=== PATIENT | female | born 1980 | race Caucasian/White ===

== ENCOUNTER 2017-05-18 10:34 | Day surgery (SDC) | payer BC ==
[~2017-05-18] VITALS: Ht 165.1 cm; Wt 77.1 kg
[~2017-05-18 10:34] MED LIST: CLON1TAB PO; FLUO10CA9 PO; FLUO40CA PO; GLYCOPYRROLATE INJ 0.2 MG/ML 2 ML VIAL As Ordered ONE; LIDOCAINE 2% INJ 100 MG/5 ML SDV (FOR ANES.) As Ordered ONE; MIDAZOLAM INJ 2 MG/2 ML VIAL (J2250) As Ordered ONE; NEOSTIGMINE 1MG/ML 5 ML SYRINGE (J2710) As Ordered ONE; ONDANSETRON 4MG/2ML VIAL (J2405) As Ordered ONE; PRENTAB20 PO; PROPOFOL 200 MG/20 ML VIAL As Ordered ONE; PROZ40CA PO; QUET1TAB8 PO; ROCURONIUM BROMIDE 50 MG/5 ML VIAL/SYRINGE As Ordered ONE; SERO50TA PO; TRAZ50TA11 PO; VENL150C43 PO; VITA100066 PO; ZANTTAB PO; ZOLO25TA PO; fentaNYL 100 MCG/2 ML INJECTION (J3010) As Ordered ONE
[2017-05-18] MEDS ORDERED: LR 1,000 ML IV ONE (11:00)
[2017-05-18 11:33] LABS: CONTROL LINE UCG INT CTR LINE PRESENT
[2017-05-18] MEDS ORDERED: SUCCINYLCHOLINE 100 MG/5 ML SYRINGE (J0330) As Ordered ONE (11:56)
[2017-05-18] MEDS ORDERED: dexameTHASONE 4 MG/ML 1ML VIAL (J1100) As Ordered ONE (12:12)
[2017-05-18] MEDS ORDERED: LIDOCAINE 2% JELLY 30 ML As Ordered ONE (12:15)
[2017-05-18] MEDS ORDERED: HYDROmorphone HCL 2 MG/ML 1ML VIAL (J1170) As Ordered ONE (12:33)
[2017-05-18] MEDS ORDERED: fentaNYL 100 MCG/2 ML INJECTION (J3010) As Ordered ONE (13:04)
[2017-05-18] MEDS: fentaNYL 100 MCG/2 ML INJECTION (J3010) IV PRN ×4 (13:05→13:35)
[2017-05-18] MEDS ORDERED: KETOROLAC 30 MG/ML VIAL (J1885) As Ordered ONE (13:16)
[2017-05-18] MEDS ORDERED: NORCO, ANEXSIA 5/325MG TABLET (HYDROcodone/ACETAMINOPHEN) PO PRN ×2 (13:30→13:45)
[2017-05-18] MEDS ORDERED: LR 1,000 ML IV SCH ×2 (13:30)
[2017-05-18] MEDS ORDERED: KETOROLAC 30 MG/ML VIAL (J1885) IV PRN (13:30)
[2017-05-18] MEDS ORDERED: ONDANSETRON 4MG/2ML VIAL (J2405) IV PRN (13:30)
[2017-05-18] MEDS ORDERED: IBUPROFEN 600 MG TAB PO PRN (13:45)
[2017-05-18 15:20] VITALS: BP 104/55
--- NOTE | 2017-05-18 16:52 | RO ---
DATE OF PROCEDURE: 05/18/2017 PREOPERATIVE DIAGNOSIS: Desire for cessation of intrauterine device (IUD) and desire for permanent sterilization. POSTOPERATIVE DIAGNOSIS: Desire for cessation of intrauterine device (IUD) and desire for permanent sterilization. Ventral hernia noted. PROCEDURE: Laparoscopic bilateral tubal ligation and removal of Mirena IUD. SURGEON: Dr. Viki Medina PARKING ASSISTANT: None. ANESTHESIA: General endotracheal anesthesia. DESCRIPTION OF PROCEDURE: Yuliana was brought to the operating room where sufficient general endotracheal anesthesia was induced. She was prepped, draped and positioned in the usual sterile fashion. The uterus was sounded to 8, the uterine manipulator placed and attention turned to the abdomen where a transverse semilunar incision was made at the inferior aspect of the umbilicus, and sharp and blunt dissection were continued to the level of the rectus fascia, which was elevated with Elle clamps, transversely incised, secured with #0 Vicryl retention suture, and then the peritoneum entered under direct visualization and the Humberto cannula placed. CO2 was then begun to fill the peritoneal cavity. After adequate CO2 insufflation, the peritoneal cavity was visualized. There were normal, shiny peritoneal surfaces throughout. There were no excrescences, ascites, nor exudates, but there was a ventral hernia. This was visible inferior to the umbilicus immediately upon entering. It was below even the extension of the trocar, and, of course, we had done direct visualization, so we did not use sharp trocars, so there was no evidence of injury to the area of omentum that was adherent to this defect. And as we evaluated it, it was several centimeters across, sort of mid ventral, the upper third of the lower half of the abdomen but not umbilical per se. Obviously, I do not know what caused this hernia. She may simply have had a ventral hernia, but she has had pregnancies and diastasis can certainly contribute to this. She has had a previous section and a previous laparoscopy. I would lean towards the section, but of, course, I do not know what caused this, nor did there seem to be any danger of incarceration of bowel or other such and so since we had not planned a repair and since it is not clear to me that this would not be better done with a plan and a plan for mesh, based on the appearance of the defect, we left it alone and went ahead and moved on to the tubal ligation. The uterus, ovaries and tubes were normal in appearance. The appendix was normal in appearance. The upper abdomen was normal in appearance. We then used bipolar cautery to cauterize the tubes, starting on the left. We used four separate locations on each tube with no difficulty in this aspect of the case, and we were able to maintain careful distance from the bowel and other peritoneal contents while doing so. Since we had already removed the Mirena IUD before the placement of the uterine manipulator and then moved on to the laparoscopy, we then discontinued the case, letting the CO2 escape the abdomen, removing instruments, closing the fascial wound with the #0 Vicryl retention sutures that had already been placed and closing the skin with a #3-0 subcuticular stitch. The procedure was then ended. Estimated blood loss for the procedure was about 5 mL. Fluid replacement was crystalloid. Complications: None. Condition and Disposition: Yuliana tolerated the procedure well and was recovering in the recovery room in good condition.
== END 2017-05-18 16:00 | disposition home or self-care (01) ==
LOC: M SDC 10:34
PROVIDERS: ATTEND Obstetrics & Gynecology
DX: Z30.2 Encounter for sterilization (principal); Z30.432 Encounter for removal of intrauterine contraceptive device; K21.9 Gastro-esophageal reflux disease without esophagitis; F41.9 Anxiety disorder, unspecified; F32.9 Major depressive disorder, single episode, unspecified; F17.210 Nicotine dependence, cigarettes, uncomplicated; Z79.899 Other long term (current) drug therapy; Z88.8 Allergy status to other drugs, medicaments and biological substances
CPT/HCPCS: 58301; 58670; 84703; J0330; J1100; J1170; J1885; J2250; J2405; J2710; J3010

== ENCOUNTER 2018-05-15 20:55 | Emergency (ER) | payer OTHER, BC ==
[2018-05-15 22:19] LABS: BASO # 0.1 10^3/uL (0.0-0.2); BASO % 0.5 % (0.0-1.0); EOS # 0.2 10^3/uL (0.0-0.50); EOS % 1.5 % (0.0-3.0); HEMATOCRIT 38.4 % (36.0-47.0); HEMOGLOBIN 12.8 g/dl (12.0-15.5); IMMATURE GRANULOCYTE % 0.4 % (0-3.0); LYMPH # 3.4 10^3/uL (1.5-4.5); LYMPH % 24.7 % (24.0-44.0); MEAN CORPUSCULAR HEMOGLOBIN 30.5 pg (27.0-33.0); MEAN CORPUSCULAR HGB CONC 33.3 g/dl (32.0-36.5); MEAN CORPUSCULAR VOLUME 91.4 fl (80.0-96.0); MONO # 1.3 10^3/uL (0.0-0.8); MONO % 9.6 % (0.0-5.0); NEUTROPHILS # 8.6 10^3/uL (1.8-7.7); NEUTROPHILS % 63.3 % (36.0-66.0); PLATELET COUNT, AUTOMATED 368 10^3/uL (150-450); RED CELL DISTRIBUTION WIDTH 13.3 % (11.5-14.5); WHITE BLOOD COUNT 13.6 10^3/uL (4.0-10.0)
[2018-05-15 22:42] LABS: AMPHETAMINES LEVEL URINE NEGATIVE (NEGATIVE); BARBITURATES URINE NEGATIVE (NEGATIVE); BENZODIAZEPINES URINE NEGATIVE (NEGATIVE); CANNABINOIDS URINE NEGATIVE (NEGATIVE); COCAINE METABOLITE URINE NEGATIVE (NEGATIVE); METHADONE URINE NEGATIVE (NEGATIVE); OPIATES URINE NEGATIVE (NEGATIVE); PHENCYCLIDINE URINE NEGATIVE (NEGATIVE)
[2018-05-15 22:46] LABS: ALBUMIN 3.7 GM/DL (3.2-5.2); ALBUMIN/GLOBULIN RATIO 1.09 (1.00-1.93); ALKALINE PHOSPHATASE 54 U/L (45-117); ALT/SGPT 16 U/L (12-78); ANION GAP 12 MEQ/L (8-16); AST/SGOT 10 U/L (7-37); BILIRUBIN,DIRECT < 0.1 MG/DL (0.0-0.2); BILIRUBIN,TOTAL 0.2 MG/DL (0.2-1.0); BLOOD UREA NITROGEN 6 MG/DL (7-18); CALCIUM LEVEL 8.7 MG/DL (8.5-10.1); CARBON DIOXIDE LEVEL 20 MEQ/L (21-32); CHLORIDE LEVEL 109 MEQ/L (98-107); CPK CREATINE PHOSPHOKINASE 66 U/L (26-192); CREATININE FOR GFR 0.63 MG/DL (0.55-1.30); GLOMERULAR FILTRATION RATE > 60.0 (>60); GLUCOSE, FASTING 89 MG/DL (70-100); POTASSIUM SERUM 3.1 MEQ/L (3.5-5.1); SALICYLATE LEVEL 4.5 MG/DL (5.0-30.0); SODIUM LEVEL 141 MEQ/L (136-145); TOTAL PROTEIN 7.1 GM/DL (6.4-8.2); TROPONIN I < 0.02 NG/ML (< 0.10)
[2018-05-15 22:50] LABS: ETHYL ALCOHOL (ETHANOL) < 0.003 % (0.000-0.010)
[2018-05-15 22:51] LABS: ACETAMINOPHEN LEVEL < 2.0 UG/ML (10.0-30.0); CK-MB VALUE MASS < 1.0 NG/ML (<3.6); MB/CK RELATIVE INDEX 1.51 (< OR =4)
[2018-05-15] MEDS: POTASSIUM CHLORIDE 10 MEQ SR TABLET PO (23:53)
== END 2018-05-16 00:05 | disposition home or self-care (01) ==
LOC: M ED 05-16 00:05
DX: E87.6 Hypokalemia (principal); G62.9 Polyneuropathy, unspecified; N80.9 Endometriosis, unspecified; G43.909 Migraine, unspecified, not intractable, without status migrainosus; Z79.899 Other long term (current) drug therapy; Z88.1 Allergy status to other antibiotic agents; Z88.8 Allergy status to other drugs, medicaments and biological substances; F17.210 Nicotine dependence, cigarettes, uncomplicated
CPT/HCPCS: 70450

== ENCOUNTER 2018-06-26 06:43 | Inpatient (IN) | payer OTHER ==
[2018-06-26 08:09] LABS: HEMATOCRIT 41.8 % (36.0-47.0); MEAN CORPUSCULAR HEMOGLOBIN 30.4 pg (27.0-33.0); MEAN CORPUSCULAR HGB CONC 33.5 g/dl (32.0-36.5); MEAN CORPUSCULAR VOLUME 90.9 fl (80.0-96.0); PLATELET COUNT, AUTOMATED 398 10^3/uL (150-450); RED CELL DISTRIBUTION WIDTH 12.9 % (11.5-14.5); WHITE BLOOD COUNT 8.7 10^3/uL (4.0-10.0)
[2018-06-26 08:24] LABS: CONTROL LINE HCG INT CTR LINE PRESENT; HCG, SERUM QUALITATIVE NEGATIVE (NEGATIVE)
[2018-06-26 08:54] LABS: ALBUMIN 3.9 GM/DL (3.2-5.2); ALBUMIN/GLOBULIN RATIO 1.22 (1.00-1.93); ALKALINE PHOSPHATASE 56 U/L (45-117); ALT/SGPT 24 U/L (12-78); ANION GAP 10 MEQ/L (8-16); AST/SGOT 33 U/L (7-37); BILIRUBIN,DIRECT < 0.1 MG/DL (0.0-0.2); BILIRUBIN,TOTAL 0.2 MG/DL (0.2-1.0); BLOOD UREA NITROGEN 7 MG/DL (7-18); CALCIUM LEVEL 8.8 MG/DL (8.5-10.1); CARBON DIOXIDE LEVEL 27 MEQ/L (21-32); CHLORIDE LEVEL 105 MEQ/L (98-107); CREATININE FOR GFR 0.68 MG/DL (0.55-1.30); ETHYL ALCOHOL (ETHANOL) 0.009 % (0.000-0.010); GLOMERULAR FILTRATION RATE > 60.0 (>60); GLUCOSE, FASTING 77 MG/DL (70-100); POTASSIUM SERUM 3.7 MEQ/L (3.5-5.1); SALICYLATE LEVEL 4.9 MG/DL (5.0-30.0); SODIUM LEVEL 142 MEQ/L (136-145); TOTAL PROTEIN 7.1 GM/DL (6.4-8.2)
[2018-06-26 08:56] LABS: ACETAMINOPHEN LEVEL < 2.0 UG/ML (10.0-30.0)
[2018-06-26 09:24] LABS: AMPHETAMINES LEVEL URINE NEGATIVE (NEGATIVE); BARBITURATES URINE NEGATIVE (NEGATIVE); BENZODIAZEPINES URINE NEGATIVE (NEGATIVE); CANNABINOIDS URINE NEGATIVE (NEGATIVE); COCAINE METABOLITE URINE NEGATIVE (NEGATIVE); METHADONE URINE NEGATIVE (NEGATIVE); OPIATES URINE NEGATIVE (NEGATIVE); PHENCYCLIDINE URINE NEGATIVE (NEGATIVE)
[2018-06-26] MEDS ORDERED: MAALOX 30 ML SUSP *UDC PO (12:30)
[2018-06-26] MEDS ORDERED: MOM 30ML SUSPENSION UDC PO (12:30)
[2018-06-26] MEDS: hydrOXYzine 25 MG TAB PO (20:37)
[2018-06-26] MEDS: TOPIRAMATE (TopAMAX) 100 MG TAB PO (20:37)
[2018-06-26] MEDS: TOPIRAMATE (TopAMAX) 25 MG TAB PO (20:37)
[2018-06-27] MEDS: FLUoxetine 20 MG CAP PO (08:47)
[2018-06-27] MEDS: TOPIRAMATE (TopAMAX) 100 MG TAB PO ×2 (08:47→20:53)
[2018-06-27] MEDS: TOPIRAMATE (TopAMAX) 25 MG TAB PO ×2 (08:47→20:53)
[2018-06-27] MEDS: INFLUENZA QUADRIVALENT PF VACCINE 0.5ML SYRINGE (90686) IM (08:47)
[2018-06-27] MEDS: OMEPRAZOLE 20 MG CAP PO (08:47)
[2018-06-27] MEDS: NICOTINE 21MG/24HR 1 EA TRANSDERMAL TD (09:42)
[2018-06-27] MEDS ORDERED: PILL CRUSHER/CUTTER 1 EACH XX (13:15)
[2018-06-27] MEDS: hydrOXYzine 25 MG TAB PO (20:53)
[2018-06-27] MEDS: traZODone 50 MG TAB PO (23:14)
[2018-06-28] MEDS: TOPIRAMATE (TopAMAX) 25 MG TAB PO ×2 (08:21→20:48)
[2018-06-28] MEDS: OMEPRAZOLE 20 MG CAP PO (08:21)
[2018-06-28] MEDS: TOPIRAMATE (TopAMAX) 100 MG TAB PO ×2 (08:21→20:47)
[2018-06-28] MEDS: FLUoxetine 20 MG CAP PO (08:21)
[2018-06-28] MEDS: hydrOXYzine 25 MG TAB PO ×2 (08:22→20:47)
[2018-06-28] MEDS: NICOTINE 21MG/24HR 1 EA TRANSDERMAL TD (08:22)
[2018-06-28] MEDS: ACETAMINOPHEN TAB 650MG DOSE (2X325MG) PO (18:02)
[2018-06-29] MEDS: NICOTINE 21MG/24HR 1 EA TRANSDERMAL TD (08:52)
[2018-06-29] MEDS: OMEPRAZOLE 20 MG CAP PO (08:53)
[2018-06-29] MEDS: FLUoxetine 20 MG CAP PO (08:53)
[2018-06-29] MEDS: TOPIRAMATE (TopAMAX) 25 MG TAB PO ×2 (08:53→21:54)
[2018-06-29] MEDS: TOPIRAMATE (TopAMAX) 100 MG TAB PO ×2 (08:53→21:54)
[2018-06-29] MEDS: ACETAMINOPHEN TAB 650MG DOSE (2X325MG) PO ×2 (13:06→23:41)
[2018-06-29] MEDS: hydrOXYzine 25 MG TAB PO ×2 (18:14→23:41)
[2018-06-30] MEDS: NICOTINE 21MG/24HR 1 EA TRANSDERMAL TD (08:32)
[2018-06-30] MEDS: OMEPRAZOLE 20 MG CAP PO (08:33)
[2018-06-30] MEDS: TOPIRAMATE (TopAMAX) 100 MG TAB PO ×2 (08:33→21:07)
[2018-06-30] MEDS: TOPIRAMATE (TopAMAX) 25 MG TAB PO ×2 (08:33→21:07)
[2018-06-30] MEDS: FLUoxetine 20 MG CAP PO (08:33)
[2018-06-30] MEDS: hydrOXYzine 25 MG TAB PO ×2 (11:52→23:33)
[2018-06-30] MEDS: ACETAMINOPHEN TAB 650MG DOSE (2X325MG) PO (21:07)
[2018-07-01] MEDS: TOPIRAMATE (TopAMAX) 25 MG TAB PO ×2 (09:16→20:59)
[2018-07-01] MEDS: FLUoxetine 20 MG CAP PO (09:16)
[2018-07-01] MEDS: NICOTINE 21MG/24HR 1 EA TRANSDERMAL TD (09:16)
[2018-07-01] MEDS: OMEPRAZOLE 20 MG CAP PO (09:16)
[2018-07-01] MEDS: TOPIRAMATE (TopAMAX) 100 MG TAB PO ×2 (09:17→20:59)
[2018-07-01] MEDS ORDERED: ONDANSETRON 4 MG TAB (S0181) PO (11:00)
[2018-07-01] MEDS: hydrOXYzine 25 MG TAB PO (11:49)
[2018-07-01] MEDS: ACETAMINOPHEN TAB 650MG DOSE (2X325MG) PO (15:34)
[2018-07-01] MEDS: hydrOXYzine 50 MG TAB PO (18:30)
[2018-07-02] MEDS: TOPIRAMATE (TopAMAX) 25 MG TAB PO ×2 (08:08→21:12)
[2018-07-02] MEDS: NICOTINE 21MG/24HR 1 EA TRANSDERMAL TD (08:08)
[2018-07-02] MEDS: OMEPRAZOLE 20 MG CAP PO (08:08)
[2018-07-02] MEDS: FLUoxetine 20 MG CAP PO (08:08)
[2018-07-02] MEDS: TOPIRAMATE (TopAMAX) 100 MG TAB PO ×2 (08:08→21:12)
[2018-07-02] MEDS: hydrOXYzine 25 MG TAB PO (21:55)
[2018-07-03] MEDS: NICOTINE 21MG/24HR 1 EA TRANSDERMAL TD (08:57)
[2018-07-03] MEDS: TOPIRAMATE (TopAMAX) 100 MG TAB PO (08:59)
[2018-07-03] MEDS: TOPIRAMATE (TopAMAX) 25 MG TAB PO (08:59)
[2018-07-03] MEDS: OMEPRAZOLE 20 MG CAP PO (08:59)
[2018-07-03] MEDS: FLUoxetine 20 MG CAP PO (08:59)
== END 2018-07-03 09:45 | disposition home or self-care (01) | DRG 751 ==
LOC: M ED 06:43 → M ED INP 12:23 → M PSY 15:33
DX: F33.1 Major depressive disorder, recurrent, moderate (principal); F29 Unspecified psychosis not due to a substance or known physiological condition; Z88.1 Allergy status to other antibiotic agents; Z88.6 Allergy status to analgesic agent; Z79.899 Other long term (current) drug therapy; K21.9 Gastro-esophageal reflux disease without esophagitis; J30.9 Allergic rhinitis, unspecified; Z98.51 Tubal ligation status; F17.210 Nicotine dependence, cigarettes, uncomplicated

== ENCOUNTER → 2018-07-20 | Outpatient (REF) | payer OTHER ==
[2018-07-20 14:08] LABS: BASO # 0.1 10^3/uL (0.0-0.2); BASO % 0.5 % (0.0-1.0); EOS # 0.2 10^3/uL (0.0-0.50); EOS % 1.6 % (0.0-3.0); HEMATOCRIT 42.1 % (36.0-47.0); IMMATURE GRANULOCYTE % 0.2 % (0-3.0); LYMPH # 1.6 10^3/uL (1.5-4.5); LYMPH % 16.7 % (24.0-44.0); MEAN CORPUSCULAR HEMOGLOBIN 30.4 pg (27.0-33.0); MEAN CORPUSCULAR HGB CONC 33.3 g/dl (32.0-36.5); MEAN CORPUSCULAR VOLUME 91.3 fl (80.0-96.0); MONO % 11.1 % (0.0-5.0); NEUTROPHILS # 6.5 10^3/uL (1.8-7.7); NEUTROPHILS % 69.9 % (36.0-66.0); PLATELET COUNT, AUTOMATED 393 10^3/uL (150-450); RED BLOOD COUNT 4.61 10^6/uL (4.00-5.40); RED CELL DISTRIBUTION WIDTH 13.9 % (11.5-14.5); WHITE BLOOD COUNT 9.3 10^3/uL (4.0-10.0)
[2018-07-20 14:37] LABS: ALBUMIN 3.8 GM/DL (3.2-5.2); ALBUMIN/GLOBULIN RATIO 1.19 (1.00-1.93); ALKALINE PHOSPHATASE 55 U/L (45-117); ALT/SGPT 21 U/L (12-78); ANION GAP 8 MEQ/L (8-16); AST/SGOT 13 U/L (7-37); BILIRUBIN,TOTAL 0.3 MG/DL (0.2-1.0); BLOOD UREA NITROGEN 8 MG/DL (7-18); CALCIUM LEVEL 8.9 MG/DL (8.5-10.1); CARBON DIOXIDE LEVEL 23 MEQ/L (21-32); CHLORIDE LEVEL 109 MEQ/L (98-107); CHOLESTEROL LEVEL 147 MG/DL (<200); CHOLESTEROL RISK RATIO 1.934 (<5); CREATININE FOR GFR 0.77 MG/DL (0.55-1.30); GLOMERULAR FILTRATION RATE > 60.0 (>60); GLUCOSE, FASTING 78 MG/DL (70-100); HDL CHOLESTEROL 76 MG/DL (>40); LDL CHOLESTEROL 61 MG/DL (<100); NON-HDL-C 71 MG/DL; POTASSIUM SERUM 4.2 MEQ/L (3.5-5.1); SODIUM LEVEL 140 MEQ/L (136-145); TOTAL 25(OH) VITAMIN D 35.5 NG/ML (30.0-100.0); TRIGLYCERIDES LEVEL 52 MG/DL (<150)
== END ==
LOC: M SFHCSACK 09:20
DX: J30.2 Other seasonal allergic rhinitis (principal); Z13.220 Encounter for screening for lipoid disorders; Z13.29 Encounter for screening for other suspected endocrine disorder; Z13.21 Encounter for screening for nutritional disorder
CPT/HCPCS: 84443

== ENCOUNTER 2018-07-24 08:49 | Inpatient (IN) | payer OTHER ==
[2018-07-24 09:41] LABS: HEMATOCRIT 45.5 % (36.0-47.0); HEMOGLOBIN 14.9 g/dl (12.0-15.5); MEAN CORPUSCULAR HEMOGLOBIN 30.6 pg (27.0-33.0); MEAN CORPUSCULAR HGB CONC 32.7 g/dl (32.0-36.5); MEAN CORPUSCULAR VOLUME 93.4 fl (80.0-96.0); PLATELET COUNT, AUTOMATED 403 10^3/uL (150-450); RED BLOOD COUNT 4.87 10^6/uL (4.00-5.40); WHITE BLOOD COUNT 11.2 10^3/uL (4.0-10.0)
[2018-07-24 09:48] LABS: CONTROL LINE HCG INT CTR LINE PRESENT; HCG, SERUM QUALITATIVE NEGATIVE (NEGATIVE)
[2018-07-24 09:54] LABS: AMPHETAMINES LEVEL URINE NEGATIVE (NEGATIVE); BARBITURATES URINE NEGATIVE (NEGATIVE); BENZODIAZEPINES URINE NEGATIVE (NEGATIVE); CANNABINOIDS URINE POSITIVE (NEGATIVE); COCAINE METABOLITE URINE NEGATIVE (NEGATIVE); METHADONE URINE NEGATIVE (NEGATIVE); OPIATES URINE NEGATIVE (NEGATIVE); PHENCYCLIDINE URINE NEGATIVE (NEGATIVE)
[2018-07-24 10:05] LABS: ACETAMINOPHEN LEVEL < 2.0 UG/ML (10.0-30.0); ALBUMIN/GLOBULIN RATIO 1.25 (1.00-1.93); ALKALINE PHOSPHATASE 61 U/L (45-117); ALT/SGPT 17 U/L (12-78); ANION GAP 8 MEQ/L (8-16); AST/SGOT 13 U/L (7-37); BILIRUBIN,DIRECT 0.1 MG/DL (0.0-0.2); BILIRUBIN,TOTAL 0.4 MG/DL (0.2-1.0); BLOOD UREA NITROGEN 7 MG/DL (7-18); CALCIUM LEVEL 9.3 MG/DL (8.5-10.1); CARBON DIOXIDE LEVEL 24 MEQ/L (21-32); CHLORIDE LEVEL 108 MEQ/L (98-107); CREATININE FOR GFR 0.76 MG/DL (0.55-1.30); ETHYL ALCOHOL (ETHANOL) < 0.003 % (0.000-0.010); GLOMERULAR FILTRATION RATE > 60.0 (>60); GLUCOSE, FASTING 100 MG/DL (70-100); SALICYLATE LEVEL 4.4 MG/DL (5.0-30.0); SODIUM LEVEL 140 MEQ/L (136-145); TOTAL PROTEIN 7.2 GM/DL (6.4-8.2)
[2018-07-24] MEDS ORDERED: MAALOX 30 ML SUSP *UDC PO (15:00)
[2018-07-24] MEDS ORDERED: hydrOXYzine 50 MG TAB PO (15:00)
[2018-07-24] MEDS: NICOTINE 21MG/24HR 1 EA TRANSDERMAL TD (18:19)
[2018-07-24] MEDS: hydrOXYzine 10 MG TAB PO (19:45)
[2018-07-24] MEDS: TOPIRAMATE (TopAMAX) 100 MG TAB PO (20:29)
[2018-07-24] MEDS: TOPIRAMATE (TopAMAX) 25 MG TAB PO (20:30)
[2018-07-25] MEDS: hydrOXYzine 10 MG TAB PO ×3 (01:43→17:37)
[2018-07-25] MEDS: TOPIRAMATE (TopAMAX) 25 MG TAB PO ×2 (09:51→20:40)
[2018-07-25] MEDS: TOPIRAMATE (TopAMAX) 100 MG TAB PO ×2 (09:51→20:40)
[2018-07-25] MEDS: OMEPRAZOLE 20 MG CAP PO (09:51)
[2018-07-25] MEDS: FLUoxetine 20 MG CAP PO (09:51)
[2018-07-25] MEDS: NICOTINE 21MG/24HR 1 EA TRANSDERMAL TD (09:52)
[2018-07-25] MEDS ORDERED: CETIRIZINE (ZyrTEC) 10 MG TAB PO (10:15)
[2018-07-25 10:39] LABS: KETONE, URINE AUTO RFX NEGATIVE (NEGATIVE); LEUKOCYTE ESTERASE UR AUTO RFX NEGATIVE (NEGATIVE); MUCUS, URINE RFX SMALL (NEGATIVE); NITRITE, URINE AUTO RFX NEGATIVE (NEGATIVE); RBC, URINE AUTO RFX 2 /HPF (0-3); SPECIFIC GRAVITY UR AUTO RFX 1.002 (1.002-1.035); SQUAM EPITHELIAL CELL UR AURFX 5 /HPF (0-6); WBC, URINE AUTO RFX 1 /HPF (0-3)
[2018-07-25] MEDS: traZODone 50 MG TAB PO (22:46)
[2018-07-26 08:18] LABS: HEMATOCRIT 41.8 % (36.0-47.0); HEMOGLOBIN 13.5 g/dl (12.0-15.5); MEAN CORPUSCULAR HEMOGLOBIN 30.5 pg (27.0-33.0); MEAN CORPUSCULAR HGB CONC 32.3 g/dl (32.0-36.5); MEAN CORPUSCULAR VOLUME 94.4 fl (80.0-96.0); PLATELET COUNT, AUTOMATED 356 10^3/uL (150-450); RED BLOOD COUNT 4.43 10^6/uL (4.00-5.40); RED CELL DISTRIBUTION WIDTH 13.9 % (11.5-14.5); WHITE BLOOD COUNT 9.8 10^3/uL (4.0-10.0)
[2018-07-26] MEDS: NICOTINE 21MG/24HR 1 EA TRANSDERMAL TD (08:20)
[2018-07-26] MEDS: TOPIRAMATE (TopAMAX) 100 MG TAB PO ×2 (08:21→20:40)
[2018-07-26] MEDS: OMEPRAZOLE 20 MG CAP PO (08:21)
[2018-07-26] MEDS: FLUoxetine 20 MG CAP PO (08:21)
[2018-07-26] MEDS: TOPIRAMATE (TopAMAX) 25 MG TAB PO ×2 (08:21→20:40)
[2018-07-26] MEDS: CEFDINIR 300 MG CAP (OMNICEF) PO ×2 (12:45→20:40)
[2018-07-26] MEDS: MOM 30ML SUSPENSION UDC PO (15:48)
[2018-07-26] MEDS: CETIRIZINE (ZyrTEC) 10 MG TAB PO (20:40)
[2018-07-26] MEDS: traZODone 50 MG TAB PO (22:11)
[2018-07-26] MEDS: PRAZOSIN 1 MG CAP PO (22:12)
[2018-07-27] MEDS: ACETAMINOPHEN TAB 650MG DOSE (2X325MG) PO (07:14)
[2018-07-27] MEDS: FLUoxetine 20 MG CAP PO (08:25)
[2018-07-27] MEDS: CEFDINIR 300 MG CAP (OMNICEF) PO (08:25)
[2018-07-27] MEDS: TOPIRAMATE (TopAMAX) 100 MG TAB PO (08:25)
[2018-07-27] MEDS: OMEPRAZOLE 20 MG CAP PO (08:25)
[2018-07-27] MEDS: TOPIRAMATE (TopAMAX) 25 MG TAB PO (08:25)
[2018-07-27] MEDS: NICOTINE 21MG/24HR 1 EA TRANSDERMAL TD (08:26)
== END 2018-07-27 11:45 | disposition home or self-care (01) | DRG 751 ==
LOC: M ED 08:49 → M ED INP 14:46 → M PSY 15:35
PROVIDERS: Psychiatry & Neurology Psychiatry
DX: F32.3 Major depressive disorder, single episode, severe with psychotic features (principal); F41.1 Generalized anxiety disorder; F43.10 Post-traumatic stress disorder, unspecified; Z88.1 Allergy status to other antibiotic agents; Z88.6 Allergy status to analgesic agent; J30.9 Allergic rhinitis, unspecified; K21.9 Gastro-esophageal reflux disease without esophagitis; Z98.51 Tubal ligation status; F17.210 Nicotine dependence, cigarettes, uncomplicated; Z79.899 Other long term (current) drug therapy

== ENCOUNTER 2018-09-06 12:48 | Inpatient (IN) | payer OTHER ==
[~2018-09-06] VITALS: Ht 165.1 cm; Wt 66.4 kg
[~2018-09-06 12:48] MED LIST changes: +ARIP5TA PO; +CEFD300CAP PO; -CLON1TAB PO; +CLON1TAB8 PO; +FLUO1TAB3 PO; +FLUO20CA19 PO; -GLYCOPYRROLATE INJ 0.2 MG/ML 2 ML VIAL As Ordered ONE; +HYDR-3363 PO; +HYDR-643 PO; +K-TA1TAB PO; +LEVOTAB10 PO; -LIDOCAINE 2% INJ 100 MG/5 ML SDV (FOR ANES.) As Ordered ONE; -MIDAZOLAM INJ 2 MG/2 ML VIAL (J2250) As Ordered ONE; +MINI1CAP PO; -NEOSTIGMINE 1MG/ML 5 ML SYRINGE (J2710) As Ordered ONE; +NICO21PAT TD; +ONDA4TAB5; -ONDANSETRON 4MG/2ML VIAL (J2405) As Ordered ONE; +PRIL20TA2 PO; -PROPOFOL 200 MG/20 ML VIAL As Ordered ONE; -ROCURONIUM BROMIDE 50 MG/5 ML VIAL/SYRINGE As Ordered ONE; +TOPA100T12 PO; +TOPA1TAB PO; +TOPI100T9 PO; +TOPI25CA PO; +TOPI25TA10 PO; +TRAZ-160 PO; -TRAZ50TA11 PO; +TRAZO50TA PO; +XYZA5TAB4 PO; -fentaNYL 100 MCG/2 ML INJECTION (J3010) As Ordered ONE
[2018-09-06 14:23] LABS: HEMOGLOBIN 13.2 g/dl (12.0-15.5); MEAN CORPUSCULAR HEMOGLOBIN 30.5 pg (27.0-33.0); MEAN CORPUSCULAR VOLUME 92.4 fl (80.0-96.0); PLATELET COUNT, AUTOMATED 352 10^3/uL (150-450); RED BLOOD COUNT 4.33 10^6/uL (4.00-5.40); WHITE BLOOD COUNT 11.6 10^3/uL (4.0-10.0)
[2018-09-06 15:04] LABS: HCG, SERUM QUALITATIVE NEGATIVE (NEGATIVE)
[2018-09-06 15:09] LABS: AMPHETAMINES LEVEL URINE NEGATIVE (NEGATIVE); BARBITURATES URINE NEGATIVE (NEGATIVE); BENZODIAZEPINES URINE NEGATIVE (NEGATIVE); CANNABINOIDS URINE POSITIVE (NEGATIVE); COCAINE METABOLITE URINE NEGATIVE (NEGATIVE); METHADONE URINE NEGATIVE (NEGATIVE); OPIATES URINE NEGATIVE (NEGATIVE); PHENCYCLIDINE URINE NEGATIVE (NEGATIVE)
[2018-09-06 15:32] LABS: ACETAMINOPHEN LEVEL < 2.0 UG/ML (10.0-30.0); ALT/SGPT 14 U/L (12-78); BILIRUBIN,DIRECT 0.1 MG/DL (0.0-0.2); BILIRUBIN,TOTAL 0.4 MG/DL (0.2-1.0); BLOOD UREA NITROGEN 10 MG/DL (7-18); CALCIUM LEVEL 8.5 MG/DL (8.5-10.1); CARBON DIOXIDE LEVEL 21 MEQ/L (21-32); CHLORIDE LEVEL 106 MEQ/L (98-107); CREATININE FOR GFR 0.74 MG/DL (0.55-1.30); ETHYL ALCOHOL (ETHANOL) < 0.003 % (0.000-0.010); GLOMERULAR FILTRATION RATE > 60.0 (>60); GLUCOSE, FASTING 79 MG/DL (70-100); POTASSIUM SERUM 3.4 MEQ/L (3.5-5.1); SALICYLATE LEVEL 2.8 MG/DL (5.0-30.0); SODIUM LEVEL 137 MEQ/L (136-145); TOTAL PROTEIN 7.4 GM/DL (6.4-8.2)
[2018-09-06] MEDS ORDERED: POTASSIUM CHLORIDE 10 MEQ SR TABLET PO ONE (16:00)
[2018-09-06] MEDS ORDERED: ABIL1TAB11 PO (17:06)
[2018-09-06] MEDS ORDERED: TOPI25TA10 PO (17:06)
[2018-09-06] MEDS ORDERED: NICO21DI31 TD (17:06)
[2018-09-06] MEDS ORDERED: OMEP20CA3 PO (17:06)
[2018-09-06] MEDS ORDERED: FLUO20CA8 PO (17:06)
[2018-09-06] MEDS ORDERED: LEVOTAB10 PO (17:06)
[2018-09-06] MEDS ORDERED: HYDR-643 PO (17:06)
[2018-09-06] MEDS ORDERED: TOPI100T9 PO (17:06)
[2018-09-06] MEDS ORDERED: TRAZ-160 PO (17:06)
[2018-09-06] MEDS ORDERED: MAALOX 30 ML SUSP *UDC PO PRN (17:45)
[2018-09-06] MEDS ORDERED: traZODone 50 MG TAB PO PRN (17:45)
[2018-09-06] MEDS ORDERED: MOM 30ML SUSPENSION UDC PO PRN (17:45)
[2018-09-06] MEDS ORDERED: ACETAMINOPHEN TAB 650MG DOSE (2X325MG) PO PRN (17:45)
[2018-09-06 18:00] VITALS: BP 122/56
[2018-09-06] MEDS ORDERED: PILL CRUSHER/CUTTER 1 EACH XX PRN (19:30)
[2018-09-06] MEDS: TOPIRAMATE (TopAMAX) 100 MG TAB PO SCH (21:42)
[2018-09-06] MEDS: TOPIRAMATE (TopAMAX) 25 MG TAB PO SCH (21:42)
[2018-09-06] MEDS: CETIRIZINE (ZyrTEC) 10 MG TAB PO SCH (21:42)
[2018-09-06] MEDS: NICOTINE 21MG/24HR 1 EA TRANSDERMAL TD SCH (21:43)
[2018-09-07 06:48] VITALS: BP 91/51
[2018-09-07] MEDS: TOPIRAMATE (TopAMAX) 100 MG TAB PO SCH ×2 (08:47→20:53)
[2018-09-07] MEDS: OMEPRAZOLE 20 MG CAP PO SCH (08:47)
[2018-09-07] MEDS: TOPIRAMATE (TopAMAX) 25 MG TAB PO SCH ×2 (08:47→20:54)
[2018-09-07] MEDS: FLUoxetine 20 MG CAP PO SCH (08:47)
[2018-09-07] MEDS: NICOTINE 21MG/24HR 1 EA TRANSDERMAL TD SCH (08:48)
--- NOTE | 2018-09-07 09:29 | HPEPDOC ---
[facility] Medical History & Physical Date of Admission Sep 06, 2018 History and Physical PCP: [facility] ATTENDING: Dr. Yosi Duval HPI: 38 yo F admitted to [facility] for unspecified depressive disorder, being medically examined today. No acute medical complaints today. Patient states her Topamax as prescribed as per psychiatry for her mood. Also reports that she takes Zyrtec for allergies. Denies any fevers, chills, weakness, fatigue, STRAUSS, CP, SOB, cough, palpitations, abdominal pain, N/V/D or changes in bladder or bowel habits. PMHx: Anxiety Depression History of depression History of SI PTSD Alcohol use Allergic rhinitis GERD PSHX: Laparoscopy for endometriosis Tubal ligation SOCHX: Resides in: [facility] Marital Status: Kids: 2 Employment: Childcare Tobacco use: One pack per day ETOH: twice in August 18- drinks. Illicit Drugs: Marijuana daily IV Drug Use: Denies Tattoos done unprofessionally: Denies FAMHX: Mother: Alive, unknown Father: Alive, COPD Siblings: 2 brothers Alive, hypertension Children: Alive, anxiety, autism Unexpected deaths due to medical reasons: None. ROS: As noted in HPI, otherwise 11pt ROS of systems reviewed and remarkable only for LMP unknown per pt. PE: GEN: 38 yo F, appears stated age. Well-nourished, well developed. No acute distress. Alert and oriented x 3. Pleasant, interactive. HEENT: Normocephalic, atraumatic. Pupils are equal, round, and reactive to light. Extraocular movements are intact. No nystagmus appreciated. Sclera are nonicteric. Conjunctiva without injection. Nose midline. Nasal turbinates wi thout bogginess. EACs both patent BL. TMs both visualized and allred with good cone of light, no bulging or erythema. No facial asymmetry. Moist mucous membranes. Dentition fair. Pharynx pink and moist, no cobblestoning. Neck supple, trachea midline. No lymphadenopathy or thyromegaly appreciated. CHEST: Regular rate and rhythm, +S1, +S2 LUNGS: Clear to auscultation bilaterally. No wheezes, rales, or rhonchi. Breathing appears symmetric and easy. Patient is speaking in full sentences. No accessory muscle use. ABD: Round, soft, non-tender, non-distended. +Bowel sounds throughout. No rebound or guarding. No costovertebral angle tenderness. EXT: Pulses 2+ bilaterally dorsalis pedis and radial. No lower extremity edema appreciated. SKIN: [place], dry, warm. Capillary refill <2sec. No rashes. NEURO: Alert and oriented x 3. Cranial nerves III-XII are intact. No focal deficits appreciated. EKG: SINUS RHYTHM, RSr' V1 & V2 (RV conduction delay), Poor R wave progression, NONSPECIFIC ST-T abnormalities. Electronically Signed On 07-26-2018 16:58:58 EST by Keron Valero A&P: 38 yo F admitted to [facility] for depressive disorder, 1. Psych. Plan per Psychiatry. EKG on file. 2. Nicotine dependence. Patch available. 3. GERD. Continue Prilosec 20 mg by mouth daily. 4. Follow up with PCP on discharge. 5. History of Substance use. Management per psychiatry. 6. Allergic rhinitis. Zyrtec 10 mg daily as needed. 7. Leukocytosis. Pt is afebrile. Asymptomatic. Possible stress response. Recheck CBC in Am. 8. Hypokalemia. S/P po supplement in ED. Recheck BMP in Am. Supplement if needed. 9. Staff member Chrissy HANKS present on exam. Vital Signs Vital Signs Date Time Temp Pulse Resp B/P (MAP) Pulse Ox O2 Delivery O2 Flow Rate FiO2 09/07/18 06:48 97.9 70 16 91/51 (64) 09/06/18 18:00 98 Room Air Laboratory Data Labs 24H Laboratory Tests 2 09/06/18 14:14: Nucleated Red Blood Cells % (auto) 0.0, Anion Gap 10, Glomerular Filtration Rate > 60.0, Calcium Level 8.5, Aspartate Amino Transf (AST/SGOT) 11, Alanine Aminotransferase (ALT/SGPT) 14, Alkaline Phosphatase 64, Total Bilirubin 0.4, Direct Bilirubin 0.1, Total Protein 7.4, Albumin 4.0, Albumin/Globulin Ratio 1.18, Thyroid Stimulating Hormone (TSH) 2.390, Human Chorionic Gonadotropin, Qual NEGATIVE, Salicylates Level 2.8L, Urine Amphetamines Screen NEGATIVE, Urine Benzodiazepines Screen NEGATIVE, Urine Opiates Screen NEGATIVE, Urine Methadone Screen NEGATIVE, Acetaminophen Level < 2.0L, Urine Barbiturates Screen NEGATIVE, Urine Phencyclidine Screen NEGATIVE, Urine Cocaine Metabolite Screen NEGATIVE, Urine Cannabinoids Screen POSITIVEH, Ethyl Alcohol Level < 0.003 CBC/BMP Laboratory Tests 09/06/18 14:14 Red Blood Count 4.33, Mean Corpuscular Volume 92.4, Mean Corpuscular Hemoglobin 30.5, Mean Corpuscular Hemoglobin Concent 33.0, Red Cell Distribution Width 13.4 Home Medications Scheduled Aripiprazole (Abilify) 5 Mg Tab, 2.5 MG PO QHS Fluoxetine Hcl (Fluoxetine) 20 Mg Cap, 60 MG PO DAILY Levocetirizine Hydrochloride (Levocetirizine Dihydrochl) 5 Mg Tab, 5 MG PO DAILY Nicotine (Nicotine Transdermal Syst) 21 Mg/24 Hr Dis, 21 MG TD DAILY Omeprazole (Omeprazole) 20 Mg Cap, 20 MG PO DAILY Topiramate (Topiramate) 100 Mg Tab, 100 MG PO BID TAKES WITH 25MG TAB FOR A TOTAL OF 125MG. Topiramate (Topiramate) 25 Mg Tab, 25 MG PO BID TAKE WITH 100MG TABLET FOR A TOTAL OF 125MG. Scheduled PRN Hydroxyzine HCl (Hydroxyzine HCl) 10 Mg Tab, 10 MG PO Q6H PRN for ANXIE TY/AGITATION Trazodone HCl (Trazodone HCl) 50 Mg Tab, 50 MG PO QHS PRN for SLEEP Allergies Coded Allergies: Clindamycin (Verified Adverse Reaction, Intermediate, VOMITTING, 05/17/17) Naproxen (Verified Adverse Reaction, Intermediate, stomach ache, 05/17/17) Meghan Blair Sep 07, 2018 09:29
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
[2018-09-07 11:41] LABS: FREE THYROXINE INDEX 2.4 % (1.3-4.8); THYROID STIMULATING HORMONE 1.59 uIU/ML (0.358-3.740); THYROXINE (T4) 7.2 UG/DL (4.5-12.0)
[2018-09-07] MEDS: PROPRANOLOL 10 MG TAB PO SCH ×3 (11:44→20:56)
[2018-09-07] MEDS: LITHIUM CARBONATE 300 MG **CR** TAB PO SCH ×2 (11:44→20:53)
[2018-09-07 18:00] VITALS: BP 90/60
[2018-09-07] MEDS: hydrOXYzine 10 MG TAB PO PRN (19:19)
[2018-09-07] MEDS: CETIRIZINE (ZyrTEC) 10 MG TAB PO SCH (20:53)
[2018-09-08 06:39] VITALS: BP 92/44
[2018-09-08 07:10] LABS: HEMATOCRIT 38.5 % (36.0-47.0); MEAN CORPUSCULAR HEMOGLOBIN 30.3 pg (27.0-33.0); MEAN CORPUSCULAR HGB CONC 33.8 g/dl (32.0-36.5); MEAN CORPUSCULAR VOLUME 89.7 fl (80.0-96.0); PLATELET COUNT, AUTOMATED 360 10^3/uL (150-450); RED BLOOD COUNT 4.29 10^6/uL (4.00-5.40); WHITE BLOOD COUNT 11.9 10^3/uL (4.0-10.0)
[2018-09-08 07:35] LABS: BLOOD UREA NITROGEN 12 MG/DL (7-18); CARBON DIOXIDE LEVEL 19 MEQ/L (21-32); CHLORIDE LEVEL 112 MEQ/L (98-107); CREATININE FOR GFR 0.71 MG/DL (0.55-1.30); GLOMERULAR FILTRATION RATE > 60.0 (>60); GLUCOSE, FASTING 92 MG/DL (70-100); POTASSIUM SERUM 4.2 MEQ/L (3.5-5.1); SODIUM LEVEL 139 MEQ/L (136-145)
[2018-09-08] MEDS: PROPRANOLOL 10 MG TAB PO SCH ×3 (08:04→20:36)
[2018-09-08] MEDS: TOPIRAMATE (TopAMAX) 100 MG TAB PO SCH ×2 (08:07→20:36)
[2018-09-08] MEDS: FLUoxetine 20 MG CAP PO SCH (08:07)
[2018-09-08] MEDS: OMEPRAZOLE 20 MG CAP PO SCH (08:07)
[2018-09-08] MEDS: TOPIRAMATE (TopAMAX) 25 MG TAB PO SCH ×2 (08:07→20:36)
[2018-09-08] MEDS: hydrOXYzine 10 MG TAB PO PRN (08:07)
[2018-09-08] MEDS: NICOTINE 21MG/24HR 1 EA TRANSDERMAL TD SCH (08:07)
[2018-09-08] MEDS: LITHIUM CARBONATE 300 MG **CR** TAB PO SCH ×2 (08:07→20:36)
[2018-09-08] MEDS: GABAPENTIN 100 MG CAP PO SCH ×3 (09:53→20:36)
[2018-09-08] MEDS: hydrOXYzine 25 MG TAB PO PRN (13:25)
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
[2018-09-08 18:00] VITALS: BP 90/58
[2018-09-08] MEDS: CETIRIZINE (ZyrTEC) 10 MG TAB PO SCH (20:36)
[2018-09-09 06:37] VITALS: BP 96/53
[2018-09-09] MEDS: PROPRANOLOL 10 MG TAB PO SCH ×3 (08:30→20:59)
[2018-09-09] MEDS: NICOTINE 21MG/24HR 1 EA TRANSDERMAL TD SCH (08:32)
[2018-09-09] MEDS: LITHIUM CARBONATE 300 MG **CR** TAB PO SCH ×2 (08:33→20:58)
[2018-09-09] MEDS: GABAPENTIN 100 MG CAP PO SCH (08:33)
[2018-09-09] MEDS: TOPIRAMATE (TopAMAX) 25 MG TAB PO SCH ×2 (08:33→20:58)
[2018-09-09] MEDS: OMEPRAZOLE 20 MG CAP PO SCH (08:33)
[2018-09-09] MEDS: TOPIRAMATE (TopAMAX) 100 MG TAB PO SCH ×2 (08:33→20:58)
[2018-09-09] MEDS: FLUoxetine 20 MG CAP PO SCH (08:33)
[2018-09-09] MEDS: GABAPENTIN 300 MG CAP PO SCH ×2 (15:22→20:58)
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
[2018-09-09 18:00] VITALS: BP 100/58
[2018-09-09] MEDS: CETIRIZINE (ZyrTEC) 10 MG TAB PO SCH (20:58)
[2018-09-10] MEDS: hydrOXYzine 25 MG TAB PO PRN ×2 (04:24→10:40)
[2018-09-10 06:54] VITALS: BP 109/55
[2018-09-10] MEDS: TOPIRAMATE (TopAMAX) 100 MG TAB PO SCH ×2 (09:17→22:12)
[2018-09-10] MEDS: PROPRANOLOL 10 MG TAB PO SCH ×3 (09:17→21:00)
[2018-09-10] MEDS: TOPIRAMATE (TopAMAX) 25 MG TAB PO SCH ×3 (09:17→22:13)
[2018-09-10] MEDS: FLUoxetine 20 MG CAP PO SCH (09:17)
[2018-09-10] MEDS: NICOTINE 21MG/24HR 1 EA TRANSDERMAL TD SCH (09:18)
[2018-09-10] MEDS: LITHIUM CARBONATE 300 MG **CR** TAB PO SCH ×2 (09:18→21:13)
[2018-09-10] MEDS: GABAPENTIN 300 MG CAP PO SCH ×3 (09:18→22:09)
[2018-09-10] MEDS: OMEPRAZOLE 20 MG CAP PO SCH (09:18)
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
[2018-09-10 18:00] VITALS: BP 102/59
[2018-09-10] MEDS: CETIRIZINE (ZyrTEC) 10 MG TAB PO SCH (21:15)
[2018-09-11 06:51] VITALS: BP 92/52
[2018-09-11] MEDS: PROPRANOLOL 10 MG TAB PO SCH ×3 (09:00→20:25)
[2018-09-11] MEDS: TOPIRAMATE (TopAMAX) 100 MG TAB PO SCH ×2 (09:20→20:25)
[2018-09-11] MEDS: TOPIRAMATE (TopAMAX) 25 MG TAB PO SCH ×2 (09:23→09:24)
[2018-09-11] MEDS: GABAPENTIN 300 MG CAP PO SCH ×3 (09:24→20:25)
[2018-09-11] MEDS: LITHIUM CARBONATE 300 MG **CR** TAB PO SCH ×2 (09:24→20:26)
[2018-09-11] MEDS: FLUoxetine 20 MG CAP PO SCH (09:24)
[2018-09-11] MEDS: OMEPRAZOLE 20 MG CAP PO SCH (09:24)
[2018-09-11] MEDS: NICOTINE 21MG/24HR 1 EA TRANSDERMAL TD SCH (09:25)
[2018-09-11] MEDS: hydrOXYzine 25 MG TAB PO PRN (17:11)
[2018-09-11 18:00] VITALS: BP 107/52
[2018-09-11] MEDS: CETIRIZINE (ZyrTEC) 10 MG TAB PO SCH (20:26)
[2018-09-12] MEDS: hydrOXYzine 25 MG TAB PO PRN (05:30)
[2018-09-12 07:00] VITALS: BP 118/53
[2018-09-12 08:00] VITALS: BP 117/64
[2018-09-12] MEDS: GABAPENTIN 300 MG CAP PO SCH (08:00)
[2018-09-12] MEDS: OMEPRAZOLE 20 MG CAP PO SCH (08:00)
[2018-09-12] MEDS: TOPIRAMATE (TopAMAX) 25 MG TAB PO SCH (08:00)
[2018-09-12] MEDS: PROPRANOLOL 10 MG TAB PO SCH (08:00)
[2018-09-12] MEDS: LITHIUM CARBONATE 300 MG **CR** TAB PO SCH (08:00)
[2018-09-12] MEDS: TOPIRAMATE (TopAMAX) 100 MG TAB PO SCH (08:00)
[2018-09-12] MEDS: FLUoxetine 20 MG CAP PO SCH (08:01)
[2018-09-12] MEDS: NICOTINE 21MG/24HR 1 EA TRANSDERMAL TD SCH (08:02)
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
[2018-09-12] MEDS ORDERED: GABA-843 PO (09:06)
[2018-09-12] MEDS ORDERED: LITH1TAB PO (09:06)
[2018-09-12] MEDS ORDERED: FLUO20CA19 PO (09:06)
[2018-09-12] MEDS ORDERED: TRAZO50TA PO (09:06)
[2018-09-12] MEDS ORDERED: HYDR-3363 PO (09:06)
[2018-09-12] MEDS ORDERED: TOPA1TAB PO (13:02)
[2018-09-12] MEDS ORDERED: TOPA100T12 PO (13:02)
== END 2018-09-12 12:00 | disposition home or self-care (01) | DRG 751 ==
LOC: M ED 12:48 → M PSY 17:55
PROVIDERS: ADMIT Psychiatry & Neurology Psychiatry; ATTEND Psychiatry & Neurology Psychiatry
DX: F33.2 Major depressive disorder, recurrent severe without psychotic features (principal); R45.851 Suicidal ideations; F43.10 Post-traumatic stress disorder, unspecified; Z79.899 Other long term (current) drug therapy; Z88.8 Allergy status to other drugs, medicaments and biological substances; K21.9 Gastro-esophageal reflux disease without esophagitis; F10.10 Alcohol abuse, uncomplicated; F17.200 Nicotine dependence, unspecified, uncomplicated; E87.6 Hypokalemia; D72.829 Elevated white blood cell count, unspecified; J30.9 Allergic rhinitis, unspecified

== ENCOUNTER 2019-03-29 12:20 | Inpatient (IN) | payer OTHER ==
[~2019-03-29] VITALS: Ht 165.1 cm; Wt 71.9 kg
[2019-03-29] MEDS: NICOTINE 21MG/24HR 1 EA TRANSDERMAL TD SCH (09:00)
[~2019-03-29 12:20] MED LIST changes: +ABIL1TAB11 PO; +ARIP1TAB6 PO; -ARIP5TA PO; +FLUO20CA8 PO; +GABA-843 PO; +LITH1TAB PO; +NICO21DI31 TD; +OMEP20CA4 PO; -TOPI25CA PO; +TOPI25CA3 PO; -TRAZ-160 PO; +TRAZ-252 PO; +TRAZ1TAB10 PO; -TRAZO50TA PO; +ZANT150T40 PO; -ZANTTAB PO
[2019-03-29] MEDS ORDERED: TOPA200T7 PO (12:42)
[2019-03-29] MEDS ORDERED: FLUO40CA PO (12:42)
[2019-03-29] MEDS ORDERED: GABA-845 PO (12:42)
[2019-03-29] MEDS ORDERED: BUPR300T34 PO (12:42)
[2019-03-29] MEDS ORDERED: PERP8TAB25 PO (12:42)
[2019-03-29 13:11] LABS: HEMATOCRIT 42.1 % (36.0-47.0); HEMOGLOBIN 13.7 g/dl (12.0-15.5); MEAN CORPUSCULAR HEMOGLOBIN 30.1 pg (27.0-33.0); MEAN CORPUSCULAR HGB CONC 32.5 g/dl (32.0-36.5); MEAN CORPUSCULAR VOLUME 92.5 fl (80.0-96.0); PLATELET COUNT, AUTOMATED 391 10^3/uL (150-450); RED BLOOD COUNT 4.55 10^6/uL (4.00-5.40); WHITE BLOOD COUNT 12.1 10^3/uL (4.0-10.0)
[2019-03-29 13:28] LABS: AMPHETAMINES LEVEL URINE NEGATIVE (NEGATIVE); BARBITURATES URINE NEGATIVE (NEGATIVE); BENZODIAZEPINES URINE NEGATIVE (NEGATIVE); CANNABINOIDS URINE POSITIVE (NEGATIVE); COCAINE METABOLITE URINE NEGATIVE (NEGATIVE); METHADONE URINE NEGATIVE (NEGATIVE); OPIATES URINE NEGATIVE (NEGATIVE); PHENCYCLIDINE URINE NEGATIVE (NEGATIVE)
[2019-03-29] MEDS ORDERED: NICOTINE 21MG/24HR 1 EA TRANSDERMAL TD ONE (13:30)
[2019-03-29 13:32] LABS: HCG, SERUM QUALITATIVE NEGATIVE (NEGATIVE)
[2019-03-29 13:47] LABS: ACETAMINOPHEN LEVEL < 2.0 UG/ML (10.0-30.0); ALBUMIN 3.8 GM/DL (3.2-5.2); ALT/SGPT 15 U/L (12-78); BILIRUBIN,DIRECT < 0.1 MG/DL (0.0-0.2); BILIRUBIN,TOTAL 0.2 MG/DL (0.2-1.0); BLOOD UREA NITROGEN 7 MG/DL (7-18); CALCIUM LEVEL 9.6 MG/DL (8.5-10.1); CARBON DIOXIDE LEVEL 27 MEQ/L (21-32); CHLORIDE LEVEL 108 MEQ/L (98-107); CREATININE FOR GFR 0.86 MG/DL (0.55-1.30); ETHYL ALCOHOL (ETHANOL) < 0.003 % (0.000-0.010); GLOMERULAR FILTRATION RATE > 60.0 (>60); GLUCOSE, FASTING 92 MG/DL (70-100); SALICYLATE LEVEL 2.6 MG/DL (5.0-30.0); SODIUM LEVEL 142 MEQ/L (136-145); TOTAL PROTEIN 7.3 GM/DL (6.4-8.2)
[2019-03-29] MEDS ORDERED: MAALOX 30 ML SUSP *UDC PO PRN (15:30)
[2019-03-29] MEDS ORDERED: ACETAMINOPHEN TAB 650MG DOSE (2X325MG) PO PRN (15:30)
[2019-03-29] MEDS ORDERED: MOM 30ML SUSPENSION UDC PO PRN (15:30)
[2019-03-29] MEDS ORDERED: CLON0.5T17 PO (16:09)
[2019-03-29] MEDS ORDERED: LITH300T2 PO (16:11)
[2019-03-29 16:47] VITALS: BP 101/53
[2019-03-29 18:00] VITALS: BP 110/75
[2019-03-29] MEDS: PERPHENAZINE 2 MG TAB PO SCH (21:06)
[2019-03-29] MEDS: TOPIRAMATE (TopAMAX) 100 MG TAB PO SCH (21:06)
[2019-03-29] MEDS: GABAPENTIN 400 MG CAP PO SCH (21:06)
[2019-03-29] MEDS: LITHIUM CARBONATE 300 MG CAP PO SCH (21:06)
[2019-03-29] MEDS ORDERED: clonazePAM 0.5 MG TAB PO ONE (22:30)
[2019-03-29] MEDS: clonazePAM 0.5 MG TAB PO SCH (22:35)
[2019-03-29] MEDS: traZODone 50 MG TAB PO PRN (22:53)
[2019-03-30 06:32] VITALS: BP 104/59
[2019-03-30] MEDS: FLUoxetine 20 MG CAP PO SCH (08:21)
[2019-03-30] MEDS: GABAPENTIN 400 MG CAP PO SCH ×3 (08:21→20:42)
[2019-03-30] MEDS: LITHIUM CARBONATE 300 MG CAP PO SCH ×2 (08:21→20:42)
[2019-03-30] MEDS: NICOTINE 21MG/24HR 1 EA TRANSDERMAL TD SCH (08:21)
[2019-03-30] MEDS: OMEPRAZOLE 20 MG CAP PO SCH (08:21)
[2019-03-30] MEDS: TOPIRAMATE (TopAMAX) 100 MG TAB PO SCH ×2 (08:21→20:42)
[2019-03-30] MEDS: buPROPion **XL** TABLET 150MG (WELLBUTRIN XL) PO SCH (08:21)
[2019-03-30] MEDS: clonazePAM 0.5 MG TAB PO SCH (09:11)
--- NOTE | 2019-03-30 10:34 | HPEPDOC ---
General Date of Admission Mar 29, 2019 at 15:29 Date of Service: Mar 30, 2019 Chief Complaint The patient is a 39-year-old female admitted with a reason for visit of Unspecified Depressive Do. History of Present Illness 39-year-old female with past medical history of GERD, allergic rhinitis has been admitted to the inpatient mental health unit for psychiatric stabilization. At this time, patient denies any acute complaints of fevers, chills, chest pain, palpitations, abdominal pain, or any nausea/vomiting/diarrhea. The hospitalist service has been consulted for medical management. Home Medications Scheduled Bupropion HCl (Bupropion Xl) 300 Mg Tab.er.24h, 300 MG PO QAM, (Reported) Clonazepam (Clonazepam) 0.5 Mg Tab.rapdis, 0.5 MG PO DAILY, (Reported) Fluoxetine Hcl (Fluoxetine HCl) 40 Mg Capsule, 40 MG PO DAILY, (Reported) Gabapentin (Gabapentin) 400 Mg Capsule, 400 MG PO TID, (Reported) [place] Carbonate ([place] Carbonate) 300 Mg Tablet, 300 MG PO BID, (Reported) Omeprazole (Omeprazole) 20 Mg Cap, 20 MG PO DAILY, (Reported) Perphenazine (Perphenazine) 8 Mg Tablet, 8 MG PO QHS, (Reported) Topiramate (Topamax) 200 Mg Tablet, 200 MG PO BID, (Reported) Allergies Coded Allergies: clindamycin (Verified Allergy, Unknown, 03/29/19) VOMIT naproxen (Verified Adverse Reaction, Unknown, 03/29/19) STOMACH ACHE Past Medical History Medical History Anxiety Depression History of depression History of SI PTSD Alcohol use Allergic rhinitis GERD Surgical History Laparoscopy for endometriosis Tubal ligation Social History Resides in: [facility] Marital Status: Kids: 2 Employment: Childcare Tobacco use: One pack per day Illicit Drugs: Marijuana daily IV Drug Use: Denies Tattoos done unprofessionally: Denies Review of Systems Other systems 10 point review of systems negative unless otherwise specified in HPI. Physical Examination General Exam: Positive: Alert, Cooperative, No Acute Distress ENT Exam: Positive: Atraumatic, Mucous membr. moist/pink Neck Exam: Negative: JVD Chest Exam: Positive: Clear to auscultation, Normal air movement Heart Exam: Positive: Rate Normal, Normal S1, Normal S2 Abdomen Exam: Positive: Soft; Negative: Tenderness Extremity Exam: Negative: Tenderness, Swelling Psych Exam: Positive: Oriented x 3 Vital Signs Vital Signs Date Time Temp Pulse Resp B/P (MAP) Pulse Ox O2 Delivery O2 Flow Rate FiO2 03/30/19 06:32 97.9 79 12 104/59 (74) 03/29/19 16:47 99 03/29/19 16:17 Room Air Laboratory Data Labs 24H Laboratory Tests 2 03/29/19 12:55: Nucleated Red Blood Cells % (auto) 0.0, Anion Gap 7L, Glomerular Filtration Rate > 60.0, Calcium Level 9.6, Aspartate Amino Transf (AST/SGOT) 8, Alanine Aminotransferase (ALT/SGPT) 15, Alkaline Phosphatase 72, Total Bilirubin 0.2, Direct Bilirubin < 0.1, Total Protein 7.3, Albumin 3.8, Albumin/Globulin Ratio 1.09, Thyroid Stimulating Hormone (TSH) 2.880, Human Chorionic Gonadotropin, Qual NEGATIVE, Salicylates Level 2.6L, Urine Amphetamines Screen NEGATIVE, Urine Benzodiazepines Screen NEGATIVE, Urine Opiates Screen NEGATIVE, Urine Methadone Screen NEGATIVE, Acetaminophen Level < 2.0L, Urine Barbiturates Screen NEGATIVE, Urine Phencyclidine Screen NEGATIVE, Urine Cocaine Metabolite Screen NEGATIVE, Urine Cannabinoids Screen POSITIVEH, Ethyl Alcohol Level < 0.003 CBC/BMP Laboratory Tests 03/29/19 12:55 Red Blood Count 4.55, Mean Corpuscular Volume 92.5, Mean Corpuscular Hemoglobin 30.1, Mean Corpuscular Hemoglobin Concent 32.5, Red Cell Distribution Width 12.9 Plan / VTE VTE Prophylaxis Ordered?: No VTE Exclusion Mechanical Proph: Low Risk for VTE Plan Plan Psych/mood disorder Management as per psychiatry GERD Continue PPI Tobacco abuse Nicotine patch DVT prophylaxis Ambulation encouraged MC MOSES MD Mar 30, 2019 10:33
[2019-03-30 18:08] VITALS: BP 96/53
[2019-03-30] MEDS: LORazepam 1 MG TAB PO PRN (18:10)
[2019-03-30] MEDS: PERPHENAZINE 2 MG TAB PO SCH (20:42)
[2019-03-30] MEDS: traZODone 50 MG TAB PO PRN (22:41)
[2019-03-31 06:51] VITALS: BP 100/56
[2019-03-31] MEDS: NICOTINE 21MG/24HR 1 EA TRANSDERMAL TD SCH (09:07)
[2019-03-31] MEDS: GABAPENTIN 400 MG CAP PO SCH ×3 (09:08→21:26)
[2019-03-31] MEDS: TOPIRAMATE (TopAMAX) 100 MG TAB PO SCH ×2 (09:08→21:26)
[2019-03-31] MEDS: buPROPion **XL** TABLET 150MG (WELLBUTRIN XL) PO SCH (09:08)
[2019-03-31] MEDS: LITHIUM CARBONATE 300 MG CAP PO SCH ×2 (09:08→21:26)
[2019-03-31] MEDS: FLUoxetine 20 MG CAP PO SCH (09:08)
[2019-03-31] MEDS: LORazepam 1 MG TAB PO PRN ×3 (09:08→22:34)
[2019-03-31] MEDS: OMEPRAZOLE 20 MG CAP PO SCH (09:08)
[2019-03-31] MEDS: clonazePAM 0.5 MG TAB PO SCH (09:08)
--- NOTE | 2019-03-31 10:32 | MHHPE ---
DATE OF ADMISSION: 03/29/2019 CHIEF COMPLAINT: Feels depressed. SUBJECTIVE: She is seen in the presence of staff. She is 39 years old. Lives with her daughter, who is 18, just graduated, and a younger child who is 3, who has autism. The patient has a history of psychiatric difficulties, carries various diagnoses, including major depressive disorder with psychosis, posttraumatic stress disorder. She was last here 09/06/2018 to 09/12/2018. Seen by Dr. Hood, whose discharge summary is reviewed. She says that she was attending outpatient care recently in the area and has been using her medicines. She is not quite sure what she takes but according to the chart is on gabapentin, Topamax, Prozac, bupropion, perphenazine, clonazepam. Says she is increasingly depressed, more so recently over the last couple of weeks. Says signed an affidavit which is related to a doctor she used to work for and alludes to his being sued and also "inappropriate behaviors," which she did not go into details about, and says now fears for her life as she is convinced that it is in danger and she will be harmed but again did not go into details. Says it has been an ongoing matter related to the stressors for awhile, again vague on it, but because of the signing of the affidavit has been further disturbed. Says started smoking cannabis and hinted that this is the first time she has done it. Later raised doubts about that and her use increased as she became further depressed, hopeless, poor sleep, and felt that she may overdose. Says tended to look at her medicines and thinking of taking them. Sleep has been erratic. Says has not had much in terms of support either. Appetite has been fair. Denies having heard any voices or seeing any visions. PAST PSYCHIATRIC HISTORY: Please see previous summaries, including Dr. Hood', when the patient was last here, discharged in the new year. She used to see Dr. Vallecillo as an outpatient, as well. Some of those notes are reviewed. SUBSTANCE ABUSE HISTORY: Has been using cannabis lately. Denies any other drug use. Toxicology was positive for cannabis. SOCIAL HISTORY: As indicated above. Says her daughter stays with her, who is 18 and just graduated. She says this has been stressful. The patient has a younger child who is 3. Says the child's father is looking after the child. This is apparently out of town. MENTAL STATUS EXAMINATION: She is unkempt somewhat. She is sitting up in bed, a bit guarded. No agitation. Fair hygiene. Fair eye contact. Is tearful. Answers questions logically, coherently for the most part. At times, a bit tangential. Denies any active suicidal thoughts or intents at present. No homicidal ideas or intents. At present, does not appear to be internally preoccupied. Cognition is grossly intact. She is alert and oriented. She took time spelling the word house backwards. Could recall two out of three objects after 5 minutes. Intellect average. Judgment and insight are quite questionable. ASSESSMENT: 1. Posttraumatic stress disorder. 2. Major depressive disorder, recurrent, severe, with psychotic features. Currently, she (dictation cut off) psychotic disorder independent of mood, though that would need further clarification and collateral information. VITAL SIGNS: Blood pressure 104/59, pulse 79, temperature 97.9. LABORATORY INVESTIGATIONS: Show a toxicology positive for cannabis. Metabolic profile essentially within normal limits. Complete blood count essentially within normal limits except for a slight rise in white cell count at 12.1. PLAN: She is admitted to inpatient psychiatric unit, placed on relevant precautions. We will look at obtaining collateral information; and meanwhile, the patient is to continue with her current medication regimen, which includes bupropion 300 mg in the morning, fluoxetine 40 mg daily, clonazepam 0.5 mg daily, gabapentin 400 mg three times a day, lithium carbonate 300 mg twice a day, Topamax 200 mg twice a day, perphenazine 8 mg at night, trazodone 50 mg at night as needed for insomnia. We will look at alternatives for the perphenazine and to see if an antipsychotic at this point is required, which it probably is. Further recommendations will be made depending on the clinical picture. She will be involved in individual therapy, as well as group therapy. She will be discharged on followup when she is stable. She is to receive a medicine consult if indicated and, in fact, the medical folks have already seen her. The assessment took 30 minutes.
[2019-03-31 18:14] VITALS: BP 102/52
[2019-03-31] MEDS: PERPHENAZINE 2 MG TAB PO SCH (21:26)
[2019-03-31] MEDS ORDERED: LORazepam 0.5 MG TAB PO ONE (21:45)
[2019-03-31] MEDS: traZODone 50 MG TAB PO PRN (22:34)
[2019-04-01 07:01] VITALS: BP 95/54
[2019-04-01] MEDS: buPROPion **XL** TABLET 150MG (WELLBUTRIN XL) PO SCH (09:08)
[2019-04-01] MEDS: OMEPRAZOLE 20 MG CAP PO SCH (09:08)
[2019-04-01] MEDS: GABAPENTIN 400 MG CAP PO SCH ×3 (09:08→20:48)
[2019-04-01] MEDS: LITHIUM CARBONATE 300 MG CAP PO SCH ×2 (09:08→20:48)
[2019-04-01] MEDS: clonazePAM 0.5 MG TAB PO SCH (09:08)
[2019-04-01] MEDS: FLUoxetine 20 MG CAP PO SCH (09:08)
[2019-04-01] MEDS: TOPIRAMATE (TopAMAX) 100 MG TAB PO SCH ×2 (09:08→20:48)
[2019-04-01] MEDS: NICOTINE 21MG/24HR 1 EA TRANSDERMAL TD SCH (09:09)
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
[2019-04-01] MEDS: LORazepam 1 MG TAB PO PRN (13:42)
[2019-04-01 18:00] VITALS: BP 102/60
[2019-04-01] MEDS ORDERED: PRAMIPEXOLE 0.25 MG TAB PO SCH (21:00)
--- NOTE | 2019-04-02 00:14 | MHIPN ---
DATE: 03/31/2019 CHIEF COMPLAINT: Feels depressed. SUBJECTIVE: Seen for followup, in the presence of staff, says feels depressed, somewhat less anxious than when seen yesterday. She also feels tired. Sleep is somewhat improved; she feels she is "catching up." Denies hearing any voices. Says was visited by her daughter yesterday and that went well. MENTAL STATUS EXAM: Neat, cooperative. She is sitting up in bed. She is coherent, appears mildly tired. She denies any thoughts of harming herself or anyone else. There is no evidence at present of any psychosis as such, does not appear internally preoccupied, no overt delusions are elicited. Cognition is grossly intact. Judgment is possibly improved, insight compromised. ASSESSMENT: Post-traumatic stress disorder. Major depressive disorder, recurrent, severe, possibly with psychotic features. PLAN: Continue current medication regimen, will get a lithium level in the morning. Would suggest that she use the lorazepam to help with acute anxiety, but that if it is too tiring, may need to consider decreasing the dose, for example to a total of 1 mg a day rather than 2 mg. Rationale for doing so is discussed. She is to be encouraged to participate in activities on the unit. I would suggest obtaining collateral information. She will be seeing the treatment team and the assigned psychiatrist tomorrow, when further recommendations will be made. Vital signs: Blood pressure 100/56, pulse 66, temperature 99.3.
[2019-04-02 06:40] VITALS: BP 110/64
[2019-04-02] MEDS: NICOTINE 21MG/24HR 1 EA TRANSDERMAL TD SCH (08:38)
[2019-04-02] MEDS: TOPIRAMATE (TopAMAX) 100 MG TAB PO SCH ×2 (08:38→20:42)
[2019-04-02] MEDS: buPROPion **XL** TABLET 150MG (WELLBUTRIN XL) PO SCH (08:38)
[2019-04-02] MEDS: OMEPRAZOLE 20 MG CAP PO SCH (08:38)
[2019-04-02] MEDS: clonazePAM 0.5 MG TAB PO SCH (08:38)
[2019-04-02] MEDS: LITHIUM CARBONATE 300 MG CAP PO SCH ×2 (08:38→20:42)
[2019-04-02] MEDS: GABAPENTIN 400 MG CAP PO SCH ×3 (08:38→20:42)
[2019-04-02] MEDS ORDERED: FLUoxetine 10 MG CAP PO SCH (09:00)
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
[2019-04-02] MEDS: LORazepam 1 MG TAB PO PRN ×2 (14:15→20:42)
[2019-04-02 18:00] VITALS: BP 133/60
[2019-04-02] MEDS: PRAMIPEXOLE 0.25 MG TAB PO SCH (21:36)
[2019-04-02] MEDS: traZODone 50 MG TAB PO PRN (21:36)
[2019-04-03 06:35] VITALS: BP 84/54
[2019-04-03] MEDS: clonazePAM 0.5 MG TAB PO SCH (09:25)
[2019-04-03] MEDS: NICOTINE 21MG/24HR 1 EA TRANSDERMAL TD SCH (09:25)
[2019-04-03] MEDS: OMEPRAZOLE 20 MG CAP PO SCH (09:26)
[2019-04-03] MEDS: FLUoxetine 20 MG CAP PO SCH (09:26)
[2019-04-03] MEDS: TOPIRAMATE (TopAMAX) 100 MG TAB PO SCH ×2 (09:26→20:21)
[2019-04-03] MEDS: GABAPENTIN 400 MG CAP PO SCH ×3 (09:26→20:21)
[2019-04-03] MEDS: LITHIUM CARBONATE 300 MG CAP PO SCH ×2 (09:26→20:22)
[2019-04-03] MEDS: buPROPion **XL** TABLET 150MG (WELLBUTRIN XL) PO SCH (09:26)
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
[2019-04-03] MEDS: LORazepam 1 MG TAB PO PRN ×2 (15:40→21:35)
[2019-04-03 18:00] VITALS: BP 98/60
[2019-04-03] MEDS: PRAMIPEXOLE 0.25 MG TAB PO SCH (20:21)
[2019-04-03] MEDS: traZODone 50 MG TAB PO PRN (21:35)
[2019-04-04 06:33] VITALS: BP 91/54
[2019-04-04] MEDS: NICOTINE 21MG/24HR 1 EA TRANSDERMAL TD SCH (09:00)
[2019-04-04] MEDS: clonazePAM 0.5 MG TAB PO SCH (09:20)
[2019-04-04] MEDS: FLUoxetine 20 MG CAP PO SCH (09:20)
[2019-04-04] MEDS: GABAPENTIN 400 MG CAP PO SCH (09:20)
[2019-04-04] MEDS: OMEPRAZOLE 20 MG CAP PO SCH (09:20)
[2019-04-04] MEDS: LITHIUM CARBONATE 300 MG CAP PO SCH (09:20)
[2019-04-04] MEDS: buPROPion **XL** TABLET 150MG (WELLBUTRIN XL) PO SCH (09:20)
[2019-04-04] MEDS: TOPIRAMATE (TopAMAX) 100 MG TAB PO SCH (09:21)
[2019-04-04] MEDS ORDERED: BUPR150T3 PO (10:14)
[2019-04-04] MEDS ORDERED: MIRA0.254 PO (10:14)
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
== END 2019-04-04 11:36 | disposition home or self-care (01) | DRG 754 ==
LOC: M ED 12:20 → M ED INP 15:29 → M PSY 16:40
PROVIDERS: ADMIT Psychiatry & Neurology Addiction Medicine; ATTEND Psychiatry & Neurology Addiction Medicine
DX: F32.9 Major depressive disorder, single episode, unspecified (principal); F12.90 Cannabis use, unspecified, uncomplicated; Z79.899 Other long term (current) drug therapy; Z88.1 Allergy status to other antibiotic agents; Z88.8 Allergy status to other drugs, medicaments and biological substances; F41.9 Anxiety disorder, unspecified; K21.9 Gastro-esophageal reflux disease without esophagitis; F10.10 Alcohol abuse, uncomplicated; J30.9 Allergic rhinitis, unspecified; F17.200 Nicotine dependence, unspecified, uncomplicated

== ENCOUNTER → 2019-06-19 | Outpatient (CLI) | payer OTHER ==
[~2019-06-19] MED LIST changes: +BUPR150T3 PO; +BUPR300T34 PO; +CLON0.5T17 PO; +GABA-845 PO; +LITH300T2 PO; +MIRA0.254 PO; +PERP8TAB25 PO; +TOPA200T7 PO
[2019-06-19 12:03] LABS: BASO # 0.1 10^3/uL (0.0-0.2); BASO % 0.9 % (0.0-1.0); EOS # 0.2 10^3/uL (0.0-0.5); EOS % 2.3 % (0.0-3.0); HEMATOCRIT 38.3 % (36.0-47.0); HEMOGLOBIN 12.1 g/dl (12.0-15.5); LYMPH # 2.1 10^3/uL (1.5-5.0); LYMPH % 25.9 % (24.0-44.0); MEAN CORPUSCULAR HEMOGLOBIN 30.3 pg (27.0-33.0); MEAN CORPUSCULAR HGB CONC 31.6 g/dl (32.0-36.5); MONO # 0.6 10^3/uL (0.0-0.8); MONO % 7.5 % (0.0-5.0); NEUTROPHILS % 63.1 % (36.0-66.0); PLATELET COUNT, AUTOMATED 362 10^3/uL (150-450); RED BLOOD COUNT 3.99 10^6/uL (4.00-5.40); WHITE BLOOD COUNT 7.9 10^3/uL (4.0-10.0)
[2019-06-19 12:40] LABS: ALBUMIN 3.8 GM/DL (3.2-5.2); ALT/SGPT 11 U/L (12-78); BILIRUBIN,TOTAL 0.5 MG/DL (0.2-1.0); BLOOD UREA NITROGEN 5 MG/DL (7-18); CARBON DIOXIDE LEVEL 27 MEQ/L (21-32); CHLORIDE LEVEL 110 MEQ/L (98-107); CHOLESTEROL LEVEL 189 MG/DL (<200); CHOLESTEROL RISK RATIO 2.423 (<5); CREATININE FOR GFR 0.84 MG/DL (0.55-1.30); FREE T4 0.88 NG/DL (0.76-1.46); GLOMERULAR FILTRATION RATE > 60.0 (>60); GLUCOSE, FASTING 86 MG/DL (70-100); HDL CHOLESTEROL 78 MG/DL (>40); LDL CHOLESTEROL 97 MG/DL (<100); LITHIUM LEVEL 0.29 MEQ/L (0.60-1.20); NON-HDL-C 111 MG/DL; POTASSIUM SERUM 4.1 MEQ/L (3.5-5.1); SODIUM LEVEL 143 MEQ/L (136-145); TOTAL PROTEIN 7.2 GM/DL (6.4-8.2); TRIGLYCERIDES LEVEL 68 MG/DL (<150)
[2019-06-19 12:46] LABS: TOTAL 25(OH) VITAMIN D 32.4 NG/ML (30.0-100.0)
== END ==
LOC: M LAB 10:59
PROVIDERS: ATTEND Nurse Practitioner Psychiatric/Mental Health
DX: F33.1 Major depressive disorder, recurrent, moderate (principal)

== ENCOUNTER → 2019-08-07 | Outpatient (REF) | payer OTHER ==
[2019-08-07 14:20] LABS: BASO # 0.1 10^3/uL (0.0-0.2); BASO % 0.4 % (0.0-1.0); EOS # 0.3 10^3/uL (0.0-0.5); EOS % 2.4 % (0.0-3.0); HEMOGLOBIN 12.7 g/dl (12.0-15.5); LYMPH # 1.9 10^3/uL (1.5-5.0); MEAN CORPUSCULAR HEMOGLOBIN 30.5 pg (27.0-33.0); MEAN CORPUSCULAR VOLUME 98.6 fl (80.0-96.0); MONO # 0.9 10^3/uL (0.0-0.8); MONO % 6.3 % (0.0-5.0); NEUTROPHILS # 10.5 10^3/uL (1.5-8.5); NEUTROPHILS % 76.5 % (36.0-66.0); PLATELET COUNT, AUTOMATED 358 10^3/uL (150-450); RED BLOOD COUNT 4.16 10^6/uL (4.00-5.40); WHITE BLOOD COUNT 13.8 10^3/uL (4.0-10.0)
[2019-08-07 15:00] LABS: ALBUMIN 3.7 GM/DL (3.2-5.2); ALT/SGPT 13 U/L (12-78); BILIRUBIN,TOTAL 0.1 MG/DL (0.2-1.0); BLOOD UREA NITROGEN 5 MG/DL (7-18); CALCIUM LEVEL 9.1 MG/DL (8.5-10.1); CARBON DIOXIDE LEVEL 28 MEQ/L (21-32); CHLORIDE LEVEL 110 MEQ/L (98-107); CHOLESTEROL LEVEL 187 MG/DL (<200); FREE T4 0.86 NG/DL (0.76-1.46); GLOMERULAR FILTRATION RATE > 60.0 (>60); GLUCOSE, FASTING 96 MG/DL (70-100); HDL CHOLESTEROL 85 MG/DL (>40); LDL CHOLESTEROL 88 MG/DL (<100); NON-HDL-C 102 MG/DL; POTASSIUM SERUM 4.1 MEQ/L (3.5-5.1); SODIUM LEVEL 143 MEQ/L (136-145); TOTAL PROTEIN 6.8 GM/DL (6.4-8.2); TRIGLYCERIDES LEVEL 70 MG/DL (<150)
== END ==
LOC: M SFHCSACK 09:19
PROVIDERS: ATTEND Physician Assistant
DX: E55.9 Vitamin D deficiency, unspecified (principal); Z13.29 Encounter for screening for other suspected endocrine disorder; Z13.220 Encounter for screening for lipoid disorders; E87.6 Hypokalemia; F41.8 Other specified anxiety disorders

== ENCOUNTER 2019-08-22 20:26 | Inpatient (IN) | payer OTHER ==
[~2019-08-22] VITALS: Ht 167.6 cm; Wt 68.5 kg
[~2019-08-22 20:26] MED LIST changes: +FLUO20CA20 PO; -FLUO20CA8 PO; +OMEP-172 PO; -OMEP20CA4 PO
[2019-08-22] MEDS ORDERED: NS 1,000 ML IV ONE ×2 (20:45→22:00)
[2019-08-22 21:22] LABS: BASO # 0.1 10^3/uL (0.0-0.2); BASO % 0.9 % (0.0-1.0); EOS # 0.3 10^3/uL (0.0-0.5); EOS % 3.8 % (0.0-3.0); HEMATOCRIT 30.6 % (36.0-47.0); HEMOGLOBIN 9.5 g/dl (12.0-15.5); LYMPH # 2.9 10^3/uL (1.5-5.0); LYMPH % 33.7 % (24.0-44.0); MEAN CORPUSCULAR HEMOGLOBIN 30.1 pg (27.0-33.0); MEAN CORPUSCULAR VOLUME 96.8 fl (80.0-96.0); MONO # 0.5 10^3/uL (0.0-0.8); MONO % 6.1 % (0.0-5.0); NEUTROPHILS # 4.8 10^3/uL (1.5-8.5); NEUTROPHILS % 55.2 % (36.0-66.0); PLATELET COUNT, AUTOMATED 281 10^3/uL (150-450); RED BLOOD COUNT 3.16 10^6/uL (4.00-5.40); WHITE BLOOD COUNT 8.7 10^3/uL (4.0-10.0)
[2019-08-22 21:42] LABS: HCG, SERUM QUALITATIVE NEGATIVE (NEGATIVE)
[2019-08-22 21:51] LABS: AMPHETAMINES LEVEL URINE NEGATIVE (NEGATIVE); BARBITURATES URINE NEGATIVE (NEGATIVE); BENZODIAZEPINES URINE NEGATIVE (NEGATIVE); CANNABINOIDS URINE NEGATIVE (NEGATIVE); COCAINE METABOLITE URINE NEGATIVE (NEGATIVE); METHADONE URINE NEGATIVE (NEGATIVE); OPIATES URINE NEGATIVE (NEGATIVE); PHENCYCLIDINE URINE NEGATIVE (NEGATIVE)
[2019-08-22 21:51] LABS: ACETAMINOPHEN LEVEL < 2.0 UG/ML (10.0-30.0); ALBUMIN 3.3 GM/DL (3.2-5.2); ALT/SGPT 11 U/L (12-78); BILIRUBIN,DIRECT < 0.1 MG/DL (0.0-0.2); BILIRUBIN,TOTAL 0.2 MG/DL (0.2-1.0); BLOOD UREA NITROGEN 8 MG/DL (7-18); CALCIUM LEVEL 7.7 MG/DL (8.5-10.1); CARBON DIOXIDE LEVEL 21 MEQ/L (21-32); CHLORIDE LEVEL 114 MEQ/L (98-107); CPK CREATINE PHOSPHOKINASE 40 U/L (26-192); CREATININE FOR GFR 0.73 MG/DL (0.55-1.30); ETHYL ALCOHOL (ETHANOL) 0.178 % (0.000-0.010); GLOMERULAR FILTRATION RATE > 60.0 (>60); GLUCOSE, FASTING 78 MG/DL (70-100); LITHIUM LEVEL 0.63 MEQ/L (0.60-1.20); POTASSIUM SERUM 3.4 MEQ/L (3.5-5.1); SALICYLATE LEVEL < 1.7 MG/DL (5.0-30.0); SODIUM LEVEL 143 MEQ/L (136-145); TOTAL PROTEIN 6.2 GM/DL (6.4-8.2)
--- NOTE | 2019-08-22 22:15 | ECGEPIP ---
[facility] - ED Test Date: 2019-08-22 Pat Name: ENIO RANDOLPH Department: Room: - Gender: Female Wedger: CHADD : 1980 Requested By: SHAN Williamson Order Number: [id number] Reading MD: Aimee Kong Measurements Intervals [place] Rate: 83 P: -68 [place]: 127 QRS: 72 QRSD: 94 T: -74 QT: 384 QTc: 453 Interpretive Statements SINUS RHYTHM baseline artifact may affect interpretation INDETERMINATE AXIS POSSIBLE RIGHT VENTRICULAR CONDUCTION DELAY NONSPECIFIC T-WAVE ABNORMALITY Electronically Signed on 08-22-2019 22:15:10 EST by Aimee Kong
[2019-08-22] MEDS ORDERED: LR 1,000 ML IV ONE (22:30)
[2019-08-23] VITALS (12 sets, daily range): BP systolic 97–119; BP diastolic 58–82
[2019-08-23] MEDS ORDERED: LR 1,000 ML IV SCH (02:00)
[2019-08-23] MEDS ORDERED: MOM 30ML SUSPENSION UDC PO PRN (05:45)
[2019-08-23] MEDS ORDERED: MAALOX 30 ML SUSP *UDC PO PRN (05:45)
[2019-08-23] MEDS ORDERED: ACETAMINOPHEN TAB 650MG DOSE (2X325MG) PO PRN (05:45)
--- NOTE | 2019-08-23 05:47 | HPEPDOC ---
[facility] Medical History & Physical Date of Admission Aug 23, 2019 Date of Service: Aug 23, 2019 Primary Care Physician: Diamante Bearden PA-C ER Attending Physician: ABEL CRESPO MD History and Physical TIME OF SERVICE: 5:45 AM CHIEF COMPLAINT: Altered mental status HISTORY OF PRESENT ILLNESS: The majority of history was obtained from Dr. Watts. The patient was too lethargic to talk. This is a 39-year-old female who was found after taking a large amount of 1 mg tabs of lorazepam and along with 4 beers. She told her friend. She wants to kill herself because her daughter is away at college. Per discussion with Dr. Watts. She has been in the ER for over 9 hours is more alert, but still fairly lethargic. During my history the patient is intermittently arousable and speaks a few words but is not very forthcoming with information. REVIEW OF SYSTEMS: Obtainable PAST MEDICAL/ SURGICAL HISTORY: Per chart review. Bipolar disorder with Depression. PTSD Unspecified psychosis. Status post . Status post laparoscopy for endometriosis. Status post tubal ligation SOCIAL HISTORY: Uses cannabis. Uses tobacco. Drinks alcohol Has a daughter who is 18. This just graduated and is a college but from her FAMILY HISTORY: Unobtainable ALLERGIES: Please see below. HOME MEDICATIONS: Please see below. PHYSICAL EXAMINATION: VITAL SIGNS: Please see below. GEN: well nourished / well developed/ lethargic INTEGUMENT: not flushed/ not jaundice HEENT: normocephalic / atraumatic / lips acyanotic /mucus membranes dry / nasal cannula in place CVS: RRR/NMRG/ LUNGS: has shallow breathing no coughing / has coarse expiratory rhonchi ABDOMEN: the abdomen is soft & not tender with palpation NEURO: Pupils are sluggish PSYCH: Asleep but arousable with vocal stimuli LABORATORY DATA: See below. MICROBIOLOGY: Please see below. ASSESSMENT: Ms. Martinez is a 33 -year-old with a past medical history of depression, psychosis & PTSD that was admitted for management of benzo and alcohol overdose; she is currently sedated pending improvement in her mental status we will consult psych. PLAN: 1. Metabolic encephalopathy. Likely due to overdose of benzos and alcohol. Plan: Admit to PCU/frequent neuro checks/fall and seizure precautions/follow-up repeat BMP 2. Alcohol abuse. Plan: Thiamine, multivitamin, Ativan per [facility] protocol 3. Suicide attempt. Plan: Psych consult/ sitter DVT prophylaxis with SCDs. Disposition likely transfer to in-patient psych after less than 2 midnight's stay Vital Signs Vital Signs Date Time Temp Pulse Resp B/P (MAP) Pulse Ox O2 Delivery O2 Flow Rate FiO2 08/23/19 04:40 72 15 97/57 (70) 95 08/22/19 20:46 97.7 Room Air Laboratory Data Labs 24H Laboratory Tests 2 08/22/19 20:45: Bedside Glucose (Misc Panel) 78 08/22/19 21:08: POC pH (Misc Panel) 7.203*L, POC Base Excess (Misc Panel) -19.0L, POC Saturated Percent O2 (Misc) 52L, POC pO2 (Misc Panel) 33.0*L, POC pCO2 (Misc Panel) 22.6L, POC HCO3 (Misc Panel) 8.9L, POC Total CO2 (Misc Panel) 10.0L 08/22/19 21:09: Lactic Acid Level 1.1 08/22/19 21:11: Immature Granulocyte % (Auto) 0.3, Neutrophils (%) (Auto) 55.2, Lymphocytes (%) (Auto) 33.7, Monocytes (%) (Auto) 6.1H, Eosinophils (%) (Auto) 3.8H, Basophils (%) (Auto) 0.9, Neutrophils # (Auto) 4.8, Lymphocytes # (Auto) 2.9, Monocytes # (Auto) 0.5, Eosinophils # (Auto) 0.3, Basophils # (Auto) 0.1, Nucleated Red Blood Cells % (auto) 0.0, Urine Opiates Screen NEGATIVE, Urine Methadone Screen NEGATIVE, Urine Barbiturates Screen NEGATIVE, Urine Phencyclidine Screen NEGATIVE, Urine Amphetamines Screen NEGATIVE, Urine Benzodiazepines Screen NEGATIVE, Urine Cocaine Metabolite Screen NEGATIVE, Urine Cannabinoids Screen NE GATIVE 08/22/19 21:12: Anion Gap 8, Glomerular Filtration Rate > 60.0, Calcium Level 7.7L, Total Bilirubin 0.2, Direct Bilirubin < 0.1, Aspartate Amino Transf (AST/SGOT) 5L, Alanine Aminotransferase (ALT/SGPT) 11L, Alkaline Phosphatase 54, Total Creatine Kinase 40, Total Protein 6.2L, Albumin 3.3, Albumin/Globulin Ratio 1.14, Thyroid Stimulating Hormone (TSH) 2.860, Human Chorionic Gonadotropin, Qual NEGATIVE, Salicylates Level < 1.7L, Acetaminophen Level < 2.0L, [place] Level 0.63, Ethyl Alcohol Level 0.178H 08/22/19 22:01: POC pH (Misc Panel) 7.249*L, POC Base Excess (Misc Panel) -10.0L, POC Saturated Percent O2 (Misc) 92L, POC pO2 (Misc Panel) 74.0L, POC pCO2 (Misc Panel) 39.8, POC HCO3 (Misc Panel) 17.4L, POC Total CO2 (Misc Panel) 19.0L 08/23/19 05:14: POC pH (Misc Panel) 7.420, POC Base Excess (Misc Panel) -6.0L, POC Saturated Percent O2 (Misc) 99H, POC pO2 (Misc Panel) 122.0H, POC pCO2 (Misc Panel) 28.8L, POC HCO3 (Misc Panel) 18.7L, POC Total CO2 (Misc Panel) 20.0L CBC/BMP Laboratory Tests 08/22/19 21:11 08/22/19 21:12 Home Medications Scheduled Escitalopram Oxalate (Escitalopram Oxalate) 20 Mg Tablet, 20 MG PO DAILY Gabapentin (Gabapentin) 300 Mg Capsule, 300 MG PO TID Levothyroxine Sodium (Synthroid) 50 Mcg Tablet, 50 MCG PO DAILY [place] Carbonate ([place] Carbonate) 300 Mg Tablet, 600 MG PO BID Lurasidone Hydrochloride (Latuda) 20 Mg Tablet, 10 MG PO QHS Omeprazole (Omeprazole) 20 Mg Cap, 20 MG PO DAILY Prazosin Hcl (Prazosin HCl) 1 Mg Capsule, 1 MG PO QHS Topiramate (Topamax) 200 Mg Tablet, 200 MG PO BID Scheduled PRN Lorazepam (Lorazepam) 1 Mg Tablet, 1 MG PO DAILY PRN for ANXIETY/AGITATION Allergies Coded Allergies: clindamycin (Verified Allergy, Unknown, 03/29/19) VOMIT naproxen (Verified Adverse Reaction, Unknown, 03/29/19) STOMACH ACHE A-FIB/CHADSVASC A-FIB History Current/History of A-Fib/PAF?: No Current PO Anticoag Therapy: No ABEL CRESPO MD Aug 23, 2019 05:47
[2019-08-23] MEDS ORDERED: LORazepam 2 MG TAB PO PRN (06:00)
[2019-08-23] MEDS: D5W/0.9% SODIUM CHLORIDE 1,000 ML IV SCH ×3 (06:30→23:12)
[2019-08-23] MEDS ORDERED: GABA-843 PO (06:32)
[2019-08-23] MEDS ORDERED: LATU20TA PO (06:32)
[2019-08-23] MEDS ORDERED: PRAZ1CAP PO (06:32)
[2019-08-23] MEDS ORDERED: LORA1TAB12 PO (06:32)
[2019-08-23] MEDS ORDERED: ESCI20TA PO (06:32)
[2019-08-23] MEDS ORDERED: SYNT50TA PO (06:32)
[2019-08-23] MEDS ORDERED: BUPR150T3 PO (08:35)
[2019-08-23] MEDS ORDERED: BUPR300T34 PO (08:35)
[2019-08-23] MEDS ORDERED: POTASSIUM CHLORIDE 10 MEQ SR TABLET PO ONE (09:30)
[2019-08-23] MEDS: FOLIC ACID 1 MG TAB PO SCH (10:33)
[2019-08-23] MEDS: THIAMINE 100 MG TAB PO SCH ×2 (10:33→20:35)
[2019-08-23] MEDS: DOCUSATE SODIUM 100 MG CAP PO SCH ×2 (10:33→20:35)
[2019-08-23] MEDS: MULTIVITAMINS/MINERALS THERAP 1 TAB PO SCH (10:33)
[2019-08-23 10:39] LABS: HEMATOCRIT 34.6 % (36.0-47.0); HEMOGLOBIN 10.8 g/dl (12.0-15.5); MEAN CORPUSCULAR HEMOGLOBIN 30.3 pg (27.0-33.0); MEAN CORPUSCULAR HGB CONC 31.2 g/dl (32.0-36.5); MEAN CORPUSCULAR VOLUME 96.9 fl (80.0-96.0); PLATELET COUNT, AUTOMATED 308 10^3/uL (150-450); RED BLOOD COUNT 3.57 10^6/uL (4.00-5.40); WHITE BLOOD COUNT 13.1 10^3/uL (4.0-10.0)
[2019-08-23 11:06] LABS: ALT/SGPT 10 U/L (12-78); BILIRUBIN,TOTAL 0.2 MG/DL (0.2-1.0); BLOOD UREA NITROGEN 9 MG/DL (7-18); CALCIUM LEVEL 7.6 MG/DL (8.5-10.1); CARBON DIOXIDE LEVEL 24 MEQ/L (21-32); CHLORIDE LEVEL 120 MEQ/L (98-107); CREATININE FOR GFR 0.75 MG/DL (0.55-1.30); GLOMERULAR FILTRATION RATE > 60.0 (>60); GLUCOSE, FASTING 80 MG/DL (70-100); SODIUM LEVEL 147 MEQ/L (136-145)
--- NOTE | 2019-08-23 18:00 | IPNPDOC ---
Text Note Date of Service The patient was seen on 08/23/19. NOTE SUBJECTIVE: Patient is seen at bedside in the emergency department on a stretcher. She is arousable to voice, but quickly drifts off to sleep. She does not remember what happened. She follows directions, but there is a significant delay in her reaction time. OBJECTIVE: VITAL SIGNS: Please see below. General: female, lying in the stretcher in the emergency department, sleepy but responds to voice. Is able to maintain her airway HEENT: Atraumatic, normocephalic. Mucous membranes are moist, pupils equal round and reactive to light, extraocular movements intact, patient has her own teeth and dentition is fair Neck: Supple, no JVD Heart: Regular rate and rhythm; no murmurs, gallops, or rubs Lungs: Clear to auscultation bilaterally; no wheezes, rhonchi, or rales Abdomen: Normoactive bowel sounds, soft, nontender, nondistended Neuro: Cranial nerves II through XII grossly intact. She is able to follow commands, though does so sluggishly. Sensation is intact throughout, muscle strength is 5 out of 5 bilaterally PSYCH: Sleepy, no psychomotor agitation, mildly depressed affect LABORATORY DATA: See below. ASSESSMENT: 33-year-old female with a significant psychiatric history admitted for management of suspected benzo and alcohol overdose; once medically cleared, we will consult psych for attempted suicide. PLAN: 1. Metabolic encephalopathy. Likely due to alcohol, as toxicology was negative for benzodiazepines despite the claim that she had taken a handful of her lorazepam at home. Alcohol level on admission 0.178. Continue with supportive measures, sitter, neuro checks 2. Alcohol abuse. Thiamine, multivitamin, Ativan per [facility] protocol 3. Suicide attempt. Suicide precautions and sitter. Once medically stable, will consult psychiatry DVT prophylaxis with SCDs. Disposition: Probable transfer to the [facility] within the next 24-48 hours VS,Flor, I+O VS, [place], I+O Laboratory Tests 08/22/19 21:11 08/22/19 21:12 08/23/19 10:29 Vital Signs Date Time Temp Pulse Resp B/P (MAP) Pulse Ox O2 Delivery O2 Flow Rate FiO2 08/23/19 16:00 60 98/60 (73) 95 Room Air 08/23/19 12:00 14 08/23/19 10:45 97.3 I&O- Last 24 Hours up to 6 AM 08/23/19 06:00 Output Total 700 ml Balance -700 ml GME ATTESTATION GME ATTESTATION My faculty preceptor for this patient encounter was physically present during the encounter and was fully available. All aspects of the patient interview, examination, medical decision making process, and medical care plan development were reviewed and approved by the faculty preceptor. The faculty preceptor is aware and concurs with the plan as stated in the body of this note and will attest to such by his/her cosignature. SHERLEY KOROMA D.O. Aug 23, 2019 18:00
[2019-08-24] VITALS: BP 98/51
[2019-08-24 02:00] VITALS: BP 94/54
[2019-08-24 04:00] VITALS: BP 105/53
[2019-08-24] MEDS: D5W/0.9% SODIUM CHLORIDE 1,000 ML IV SCH (04:15)
[2019-08-24 04:57] LABS: HEMATOCRIT 33.3 % (36.0-47.0); HEMOGLOBIN 10.4 g/dl (12.0-15.5); MEAN CORPUSCULAR HEMOGLOBIN 30.3 pg (27.0-33.0); MEAN CORPUSCULAR HGB CONC 31.2 g/dl (32.0-36.5); MEAN CORPUSCULAR VOLUME 97.1 fl (80.0-96.0); PLATELET COUNT, AUTOMATED 275 10^3/uL (150-450); RED BLOOD COUNT 3.43 10^6/uL (4.00-5.40)
[2019-08-24 05:27] LABS: ALBUMIN 2.5 GM/DL (3.2-5.2); ALT/SGPT 8 U/L (12-78); BILIRUBIN,TOTAL 0.3 MG/DL (0.2-1.0); BLOOD UREA NITROGEN 5 MG/DL (7-18); CALCIUM LEVEL 7.3 MG/DL (8.5-10.1); CARBON DIOXIDE LEVEL 20 MEQ/L (21-32); CHLORIDE LEVEL 119 MEQ/L (98-107); CREATININE FOR GFR 0.69 MG/DL (0.55-1.30); GLOMERULAR FILTRATION RATE > 60.0 (>60); GLUCOSE, FASTING 109 MG/DL (70-100); POTASSIUM SERUM 3.6 MEQ/L (3.5-5.1); SODIUM LEVEL 146 MEQ/L (136-145); TOTAL PROTEIN 5.1 GM/DL (6.4-8.2)
[2019-08-24 06:00] VITALS: BP 115/55
[2019-08-24] MEDS ORDERED: LEVOTHYROXINE 50MCG TABLET (0.05MG) PO SCH (06:00)
[2019-08-24 08:00] VITALS: BP 116/67
[2019-08-24] MEDS ORDERED: LORazepam 1 MG TAB PO PRN (08:30)
[2019-08-24] MEDS: MULTIVITAMINS/MINERALS THERAP 1 TAB PO SCH (08:58)
[2019-08-24] MEDS: FOLIC ACID 1 MG TAB PO SCH (08:58)
[2019-08-24] MEDS: DOCUSATE SODIUM 100 MG CAP PO SCH (08:58)
[2019-08-24] MEDS: THIAMINE 100 MG TAB PO SCH (08:58)
[2019-08-24] MEDS ORDERED: buPROPion **XL** TABLET 150MG (WELLBUTRIN XL) PO SCH ×2 (09:00)
[2019-08-24] MEDS ORDERED: ESCITALOPRAM OXALATE 10 MG TAB (LEXAPRO) PO SCH (09:00)
[2019-08-24] MEDS ORDERED: GABAPENTIN 300 MG CAP PO SCH (09:00)
[2019-08-24] MEDS ORDERED: LITHIUM CARBONATE 300 MG CAP PO SCH (09:00)
[2019-08-24] MEDS ORDERED: OMEPRAZOLE 20 MG CAP PO SCH (09:00)
[2019-08-24] MEDS ORDERED: TOPIRAMATE (TopAMAX) 100 MG TAB PO SCH (09:00)
[2019-08-24] MEDS ORDERED: PILL CUTTER 1 EACH XX PRN (10:00)
[2019-08-24] MEDS ORDERED: VITMTA PO (11:57)
[2019-08-24] MEDS ORDERED: THIA100TA PO (11:57)
[2019-08-24] MEDS ORDERED: FOLI1TAB11 PO (11:57)
[2019-08-24] MEDS ORDERED: LORazepam 1 MG TAB PO ONE (12:00)
--- NOTE | 2019-08-24 12:09 | MHIPNPDOC ---
[facility] Progress Note Progress Note DATE OF SERVICE: 08/24/19 HISTORY: The patient is a 39 year old female that was brought to the ED via EMS on 08/22/19 at 20:26 after she reported EMS she took a handful of Ativan 1 mg and 4 drinks, apparently beer. She says "it's the season", she says she gets depressed fro [place] because she doesn't have close relatives/friends with whom to socialize but she told a friend, before she OD'd, that she was feeling suicidal because her daughter was away from home. According to Nursing Staff, she has not stopped crying. she says she goes to the community clinic but she has a poor response to medications. She says she was diagnosed with Bipolar disorder in the past but now she has been diagnosed with depression and anxiety VITAL SIGNS: See below. NEW TEST RESULTS: See below CURRENT MEDICATIONS: See below. MENTAL STATUS EXAMINATION: Patient is a 39 year old female, who is alert, dressed in hospital gown, looking sad, as if she has been crying, her eyelids are swollen. Speech: Is slow, normal tone and volume. spontaneous. Language skills are good. Thought processes including: linear, coherent. Thought content: negative for thought delusions but she says she has had thoughts of "because it's the season that makes me feel like that". . Abstract reasoning, and computation: She can't focus, she is still a little lethargic, she could not do series of 7's. Description of associations: Intact. Description of abnormal or psychotic thoughts: Denies TAV hallucinations, denies thought delusions, she's not responding to internal stimuli Judgment: poor. Insight: poor. Orientation: to place and person, not to date and time. Recent and remote memory: recent memory is limited. she has no recollection of the recent events that lead to her hospitalization, except for the fact that she was drinking with a friend. She says she doesn't remember taking the pills. Attention span and concentration: it's difficult to focus Language: No abnormalities observed. Mood: depressed Affect: depressed/anxious. DIAGNOSES: 1. Unspecified mood disorder 2. R/O ETOH use disorder 3. R/O ETO induced mood disorder ASSESSMENT: patient is very depressed and vulnerable.She is tearful, she can't fully remember or comprehend why she ended up at the Hospital. She is minimizing her problem saying that she's depressed and has SI because it's [place] and she's lonely but soon after, she admits that she was dating someone and they broke up one month ago. MANAGEMENT PLAN: will transfer to [facility] for continuity of care and stabilization. the patient needs medication adjustment and needs to be stabilized. TIME SPENT: 35 minutes. Vital Signs Vital Signs Date Time Temp Pulse Resp B/P (MAP) Pulse Ox O2 Delivery O2 Flow Rate FiO2 08/24/19 08:00 98.3 82 18 116/67 (83) 100 Room Air Laboratory Data 24H Labs Laboratory Tests 2 08/24/19 04:24: Nucleated Red Blood Cells % (auto) 0.0, Anion Gap 7L, Glomerular Filtration Rate > 60.0, Calcium Level 7.3L, Total Bilirubin 0.3, Aspartate Amino Transf (AST/SGOT) 8, Alanine Aminotransferase (ALT/SGPT) 8L, Alkaline Phosphatase 48, Total Protein 5.1L, Albumin 2.5L, Albumin/Globulin Ratio 0.96L CBC/BMP Laboratory Tests 08/24/19 04:24 Current Medications Current Medications Medications (Trade) Dose Ordered Sig/Sharon Route PRN Reason Start Time Stop Time Status Last Admin Dose Admin Acetaminophen (Tylenol Tab) 650 mg Q4H PRN PO PAIN OR FEVER 08/23/19 05:45 Al Hydrox/Mg Hydrox/Simethicone (Mylanta) 30 ml DAILY PRN PO DYSPEPSIA 08/23/19 05:45 Bupropion HCl (Wellbutrin Xl) 150 mg DAILY PO 08/24/19 09:00 UNV Bupropion HCl (Wellbutrin Xl) 450 mg DAILY PO 08/24/19 09:00 08/24/19 08:57 Dextrose/Sodium Chloride 1,000 ml @ 150 mls/hr Q6H40M IV 08/23/19 05:47 08/24/19 07:25 DC 08/24/19 04:15 Docusate Sodium (Colace) 100 mg BID PO 08/23/19 09:00 08/24/19 08:58 Escitalopram Oxalate (Lexapro) 20 mg DAILY PO 08/24/19 09:00 08/24/19 08:58 Folic Acid (Folic Acid) 1 mg DAILY PO 08/23/19 09:00 12/14/19 08:58 Gabapentin (Neurontin) 300 mg TID PO 08/24/19 09:00 08/24/19 08:58 Home Med (Med Rec Complete!) ASDIRECTED XX 08/23/19 08:45 08/23/19 08:42 DC Lactated Ringer's 1,000 ml @ 100 mls/hr Q10H IV 08/23/19 02:00 08/23/19 09:19 DC 08/23/19 02:15 Levothyroxine Sodium (Synthroid) 50 mcg DAILY@0600 PO 08/24/19 06:00 08/24/19 09:06 [place] Carbonate ([place] Carbonate) 600 mg BID PO 08/24/19 09:00 08/24/19 10:24 Lorazepam (Ativan) 1 mg DAILY PRN PO ANXIETY/AGITATION 08/24/19 08:30 08/24/19 11:42 Lorazepam (Ativan) 2 mg ASDIRECTED PRN PO SEE PROTOCOL 08/23/19 06:00 Lurasidone HCl (Latuda) 10 mg QHS PO 08/24/19 21:00 Magnesium Hydroxide (Milk Of Magnesia) 30 ml DAILY PRN PO CONSTIPATION 08/23/19 05:45 Multivitamins (Theragram-M) 1 tab DAILY PO 08/23/19 09:00 08/24/19 08:58 Omeprazole (PriLOSEC) 20 mg DAILY PO 08/24/19 09:00 08/24/19 08:58 Prazosin HCl (Minipress) 1 mg QHS PO 08/24/19 21:00 Thiamine HCl (Thiamine HCl) 100 mg BID PO 08/23/19 09:00 08/26/19 08:59 08/24/19 08:58 Topiramate (TopAMAX) 200 mg BID PO 08/24/19 09:00 08/24/19 10:25 Allergies Coded Allergies: clindamycin (Verified Adverse Reaction, Mild, N/V, 08/23/19) naproxen (Verified Adverse Reaction, Mild, STOMACH ACHE, 08/23/19) KARLI VERGARA MD Aug 24, 2019 12:09
[2019-08-24 13:00] VITALS: BP 98/57
--- NOTE | 2019-08-24 16:47 | DSES ---
DATE OF ADMISSION: 08/23/2019 DATE OF DISCHARGE: 08/24/2019 DISCHARGE DIAGNOSES: 1. Attempted suicide 2. Metabolic encephalopathy. 3. Alcohol abuse. FARM MACHINERY MECHANIC: Dr. Camilo, psychiatry PROCEDURES: None. HOSPITAL COURSE: This is a 39-year-old female with multiple psychiatric diagnoses who was brought to the emergency department on 08/22/2019 via emergency medical services (EMS) after she reported that she had taken a handful of Ativan 1 mg and four drinks, apparently beer. She had told a friend that she wanted to kill herself because her daughter was away at college. In the emergency department, she was found to be able to maintain her airway but did have soft systolic blood pressures. She was arousable to painful stimuli and after observation became arousable to verbal stimuli. She continued to be somewhat lethargic, though, so was admitted to the intensive care unit (ICU) for observation. Over the next 24 hours, she became much more alert and was felt to be medically cleared for discharge to inpatient mental health on 08/24/2019. Dr. Muse from psychiatry was consulted and admitted the patient to inpatient mental health unit (IM). PHYSICAL EXAMINATION: VITAL SIGNS: Temperature 98.3, pulse 82 and regular, respiratory rate 18, blood pressure 116/67, 100% on room air. GENERAL: female lying in bed, arousable to voice and much more alert than the previous day. PSYCHIATRIC: Depressed affect, tearful. Does not remember the events leading up to her hospitalization. HEENT: Atraumatic, normocephalic. Mucous membranes are moist. Pupils are equal, round, and reactive to light. Extraocular eye movements are intact. The patient, however, has her own teeth and dentition is fair. NECK: Supple. No jugular venous distention (JVD). HEART: Regular rate and rhythm. No murmurs, gallops, or rubs. LUNGS: Clear to auscultation bilaterally. No wheezes, rhonchi, or rales. ABDOMEN: Normoactive bowel sounds, soft, nontender, nondistended. NEUROLOGIC: Cranial nerve II-XII grossly intact. Able to follow commands. Sensation is intact throughout. Muscle strength is 5/5 bilaterally. LABORATORY DATA: CBC: WBC 11.0, hemoglobin 10.4, hematocrit 33.3, platelets 275. Chemistry: Sodium 146, potassium 3.6, chloride 119, carbon dioxide 20, BUN 5, creatinine 0.69. Fasting glucose 109, calcium 7.3. Total bilirubin 0.3, AST 8, ALT 8, alkaline phosphatase 48, total protein 5.1, albumin 2.9. Toxicology from the emergency department on 08/22/2019 was negative for everything except for alcohol, which her level was 0.178. Curiously it was negative for benzodiazepines. Lurasidone level is pending. [place] level was 0.63. EKG done in the emergency department showed sinus rhythm at 83 beats per minute. Possible right ventricular conduction delay. DISCHARGE MEDICATIONS: - folic acid 1 mg by mouth daily - multivitamins one tablet by mouth daily - thiamine 100 mg by mouth twice a day - Wellbutrin 150 mg by mouth at bedtime and 300 mg by mouth every morning - escitalopram 20 mg by mouth daily - gabapentin 300 mg by mouth three times a day - Synthroid 50 mcg by mouth daily - lithium 600 mg by mouth twice a day - lorazepam 1 mg by mouth daily as needed for anxiety or agitation - Latuda 10 mg by mouth at bedtime - omeprazole 20 mg by mouth daily - Prazosin 1 mg by mouth at bedtime - topiramate 200 mg by mouth twice a day ACTIVITY: As tolerated. DIET: As tolerated. DISPOSITION: Stable and medically clear for transfer [facility]. ITEMS TO FOLLOW UP ON: Medication adjustments per psychiatry for better control over her multiple psychiatric conditions. Greater than 30 minutes spent on discharge.
[2019-08-24] MEDS ORDERED: PRAZOSIN 1 MG CAP PO SCH (21:00)
[2019-08-24] MEDS ORDERED: LURASIDONE 20 MG TAB (LATUDA) PO SCH (21:00)
== END 2019-08-24 13:24 | DRG 812 ==
LOC: M ED 20:26 → EDBD 20:26 → M ED INP 08-23 05:44 → M ICU 08-23 11:17
PROVIDERS: ADMIT Internal Medicine; ATTEND Internal Medicine
DX: T42.4X2A Poisoning by benzodiazepines, intentional self-harm, initial encounter (principal); G93.41 Metabolic encephalopathy; F31.9 Bipolar disorder, unspecified; F43.10 Post-traumatic stress disorder, unspecified; F10.14 Alcohol abuse with alcohol-induced mood disorder; F17.200 Nicotine dependence, unspecified, uncomplicated; F12.20 Cannabis dependence, uncomplicated; T51.92XA Toxic effect of unspecified alcohol, intentional self-harm, initial encounter; Z79.899 Other long term (current) drug therapy; Z88.1 Allergy status to other antibiotic agents

== ENCOUNTER 2019-08-24 12:39 | Inpatient (IN) | payer OTHER ==
[~2019-08-24] VITALS: Ht 165.1 cm; Wt 65.7 kg
[~2019-08-24 12:39] MED LIST changes: +ESCI20TA PO; +FOLI1TAB11 PO; +LATU20TA PO; +LORA1TAB12 PO; +PRAZ1CAP PO; +SYNT50TA PO; +THIA100TA PO; +VITMTA PO
[2019-08-24] MEDS ORDERED: MAALOX 30 ML SUSP *UDC PO PRN (12:45)
[2019-08-24] MEDS ORDERED: MOM 30ML SUSPENSION UDC PO PRN (12:45)
[2019-08-24] MEDS ORDERED: traZODone 50 MG TAB PO PRN (12:45)
[2019-08-24] MEDS ORDERED: ACETAMINOPHEN TAB 650MG DOSE (2X325MG) PO PRN (12:45)
[2019-08-24] MEDS ORDERED: LORazepam 2 MG TAB PO PRN (12:45)
[2019-08-24 13:30] VITALS: BP 97/61
[2019-08-24 14:30] VITALS: BP 97/61
[2019-08-24] MEDS: GABAPENTIN 300 MG CAP PO SCH ×2 (15:19→21:53)
[2019-08-24 16:04] VITALS: BP 101/57
[2019-08-24] MEDS: LURASIDONE 20 MG TAB (LATUDA) PO SCH (18:19)
[2019-08-24] MEDS ORDERED: PILL CUTTER 1 EACH XX PRN (18:30)
[2019-08-24] MEDS: LITHIUM CARBONATE 600 MG CAP PO SCH (21:52)
[2019-08-24] MEDS: TOPIRAMATE (TopAMAX) 100 MG TAB PO SCH (21:53)
[2019-08-24] MEDS: DOCUSATE SODIUM 100 MG CAP PO SCH (21:53)
[2019-08-24] MEDS: PRAZOSIN 1 MG CAP PO SCH (21:53)
[2019-08-24] MEDS: THIAMINE 100 MG TAB PO SCH (22:00)
[2019-08-25 06:01] VITALS: BP 102/62
[2019-08-25 06:18] VITALS: BP 102/62
[2019-08-25] MEDS: LEVOTHYROXINE 50MCG TABLET (0.05MG) PO SCH (06:30)
[2019-08-25] MEDS ORDERED: LITHIUM CARBONATE 600 MG CAP PO SCH (09:00)
[2019-08-25] MEDS: THIAMINE 100 MG TAB PO SCH ×2 (10:21→20:27)
[2019-08-25] MEDS: DOCUSATE SODIUM 100 MG CAP PO SCH ×2 (10:21→20:27)
[2019-08-25] MEDS: LITHIUM CARBONATE 600 MG CAP PO SCH ×2 (10:21→20:27)
[2019-08-25] MEDS: ESCITALOPRAM OXALATE 10 MG TAB (LEXAPRO) PO SCH (10:21)
[2019-08-25] MEDS: OMEPRAZOLE 20 MG CAP PO SCH (10:22)
[2019-08-25] MEDS: FOLIC ACID 1 MG TAB PO SCH (10:22)
[2019-08-25] MEDS: MULTIVITAMINS/MINERALS THERAP 1 TAB PO SCH (10:22)
[2019-08-25] MEDS: GABAPENTIN 300 MG CAP PO SCH ×3 (10:22→20:27)
[2019-08-25] MEDS: buPROPion **XL** TABLET 150MG (WELLBUTRIN XL) PO SCH (10:22)
[2019-08-25] MEDS: TOPIRAMATE (TopAMAX) 100 MG TAB PO SCH ×2 (10:23→20:26)
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
--- NOTE | 2019-08-25 12:36 | HPEPDOC ---
[facility] Medical History & Physical Date of Admission Aug 24, 2019 Date of Service: Aug 25, 2019 History and Physical CHIEF COMPLAINT: Hospitalist consult for medical co-morbidities. HISTORY OF PRESENT ILLNESS: This is a 39-year-old female with multiple psychiatric diagnoses who was brought to the emergency department on 08/22/2019 via emergency medical services (EMS) after she reported that she had taken a handful of Ativan 1 mg and four drinks, apparently beer. She had told a friend that she wanted to kill herself because her daughter was away at college. In the emergency department, she was found to be able to maintain her airway but did have soft systolic blood pressures. She was arousable to painful stimuli and after observation became arousable to verbal stimuli. She continued to be somewhat lethargic, though, so was admitted to the intensive care unit (ICU) for observation. Over the next 24 hours, she became much more alert and was felt to be medically cleared for discharge to inpatient mental health on 08/24/2019. Dr. Camilo from psychiatry was consulted and admitted the patient to inpatient mental health unit ([facility]). Today the patient is seen and examined in [facility], and has no medical complaints. She denies chest pain, shortness of breath, abdominal pain, N/V/D. Past Medical History: 1. Attempted suicide 2. Metabolic encephalopathy. 3. Alcohol abuse. 4. Nicotine abuse ALLERGIES: Please see below. REVIEW OF SYSTEMS: Negative except as per HPI. HOME MEDICATIONS: Please see below. PHYSICAL EXAMINATION: VITAL SIGNS: See below GENERAL APPEARANCE: NAD, sitting comfortably in exam chair HEENT: NC/AT, EOMI, PERRL CARDIOVASCULAR: +S1S2, RRR, -M/R/G LUNGS: CTA B/L ABDOMEN: soft, NT, +BS EXTREMITIES: no edema NEUROLOGICAL: no gross focal deficits PSYCHIATRIC: flat affect, AAOx3 LABORATORY DATA: See below. MICROBIOLOGY: Please see below. ASSESSMENT: 39 yo female admitted to [facility] after observation on medical floor for ethanol abuse, attempted suicide. #suicidal ideation - as per primary team - psychiatry #ethanol abuse - folate/thiamine - further direction as per psychiatry #nicotine abuse - patient states she smoke 1ppd - start NRT - 21mg TD PLAN: 1. . Vital Signs Vital Signs Date Time Temp Pulse Resp B/P (MAP) Pulse Ox O2 Delivery O2 Flow Rate FiO2 08/25/19 09:00 Room Air 12/15/19 06:18 97.6 67 14 102/62 (75) 08/24/19 13:30 100 Home Medications Scheduled Bupropion HCl (Bupropion Xl) 300 Mg Tab.er.24h, 300 MG PO DAILY 450MG TOTAL Bupropion Hcl (Bupropion Xl) 150 Mg Tab.er.24h, 150 MG PO DAILY 450MG TOTAL Escitalopram Oxalate (Escitalopram Oxalate) 20 Mg Tablet, 20 MG PO DAILY Folic Acid (Folic Acid) 1 Mg Tablet, 1 MG PO DAILY Gabapentin (Gabapentin) 300 Mg Capsule, 300 MG PO TID Levothyroxine Sodium (Synthroid) 50 Mcg Tablet, 50 MCG PO DAILY [place] Carbonate ([place] Carbonate) 300 Mg Tablet, 600 MG PO BID Lurasidone Hydrochloride (Latuda) 20 Mg Tablet, 10 MG PO QHS Multivitamins (Thera M Plus Tablet) 1 Each Tablet, 1 TAB PO DAILY Omeprazole (Omeprazole) 20 Mg Cap, 20 MG PO DAILY Prazosin Hcl (Prazosin HCl) 1 Mg Capsule, 1 MG PO QHS Thiamine Hcl (Vitamin B-1) 100 Mg Tablet, 100 MG PO BID Topiramate (Topamax) 200 Mg Tablet, 200 MG PO BID Scheduled PRN Lorazepam (Lorazepam) 1 Mg Tablet, 1 MG PO DAILY PRN for ANXIETY/AGITATION Allergies Coded Allergies: clindamycin (Verified Adverse Reaction, Mild, N/V, 08/23/19) naproxen (Verified Adverse Reaction, Mild, STOMACH ACHE, 08/23/19) A-FIB/CHADSVASC A-FIB History Current/History of A-Fib/PAF?: No LILLY AMADOR MD Aug 25, 2019 12:36
[2019-08-25] MEDS: NICOTINE 21MG/24HR 1 EA TRANSDERMAL TD SCH (13:11)
[2019-08-25 16:00] VITALS: BP 96/56
[2019-08-25] MEDS: LURASIDONE 20 MG TAB (LATUDA) PO SCH (18:02)
[2019-08-25 19:58] VITALS: BP 100/56
[2019-08-25 20:00] VITALS: BP 100/58
[2019-08-25 20:27] VITALS: BP 112/64
[2019-08-25] MEDS: PRAZOSIN 1 MG CAP PO SCH (20:27)
[2019-08-26] MEDS: LEVOTHYROXINE 50MCG TABLET (0.05MG) PO SCH (05:57)
[2019-08-26 06:18] VITALS: BP 114/68
[2019-08-26] MEDS: TOPIRAMATE (TopAMAX) 100 MG TAB PO SCH (08:50)
[2019-08-26] MEDS: buPROPion **XL** TABLET 150MG (WELLBUTRIN XL) PO SCH (08:52)
[2019-08-26] MEDS: LITHIUM CARBONATE 600 MG CAP PO SCH (08:52)
[2019-08-26] MEDS: DOCUSATE SODIUM 100 MG CAP PO SCH (08:52)
[2019-08-26] MEDS: FOLIC ACID 1 MG TAB PO SCH (08:52)
[2019-08-26] MEDS: GABAPENTIN 300 MG CAP PO SCH (08:52)
[2019-08-26] MEDS: THIAMINE 100 MG TAB PO SCH (08:52)
[2019-08-26] MEDS: MULTIVITAMINS/MINERALS THERAP 1 TAB PO SCH (08:52)
[2019-08-26] MEDS: OMEPRAZOLE 20 MG CAP PO SCH (08:52)
[2019-08-26] MEDS: ESCITALOPRAM OXALATE 10 MG TAB (LEXAPRO) PO SCH (08:53)
[2019-08-26] MEDS: NICOTINE 21MG/24HR 1 EA TRANSDERMAL TD SCH (08:57)
--- NOTE | 2019-08-26 10:06 | MHDSPDOC ---
[facility] Discharge Summary Discharge Summary DATE OF ADMISSION: Aug 24, 2019 at 13:28 DATE OF DISCHARGE: 08/26/19 Discharge Yuliana Berger Female Date of : N/A Date of Service: 08/26/2019 Diagnoses MDD, moderate, in full remission. Cannabis use disorder, severe. Alcohol use disorder, moderate. Benzodiazepine use disorder, moderate. History of Present Illness The patient, a 39-year-old woman with a history of alcohol use problems, presents after taking Ativan and alcohol, becoming severely intoxicated while drinking with her daughter's boyfriend and subsequently presenting reporting an overdose. However, she reports that she remembers drinking with her daughter's boyfriend, but doesn't remember anything after it. She reports that she had no intention to hurt herself and has not been suicidal since she was discharged from her last admission, reporting no significant changes with her depression, still in remission. She reports that she was fairly intoxicated and had not been aware of the problems of mixing Ativan and alcohol. Her blood alcohol was 0.178 when she had arrived. She was admitted on the medical floor out of an abundance of caution, but since arrival has been amenable and friendly, reporting that she does have some stressors in the form of child custody problems, but otherwise has been coping with it well, attending her outpatient appointments. The psychosocial information below is extracted from my previous note and updated as appropriate. Consultants Involved Hospitalist/PCP screening Treatment and Progress On The Unit The patient was admitted to the inpatient unit and observed after a reported overdose, however, after observation and further discussion it became clear that the patient had become quite intoxicated and likely had made statements. Her medical admission did not demonstrate any signs of a severe overdose and her account was that she did not remember. After observation on the inpatient unit for well over 48 hours she did not meet involuntary criteria in my clinical judgment for extension of her admission as she had been denying suicidal or homicidal ideation, had a normal mental status exam, was cooperative, pleasant, and attended groups making no overt threats towards herself or others. She additionally did not appear overtly impaired by any mental health condition so much so could not take care of herself and declined further voluntary admission and thus was discharged in good roc. There was a discussion about the inappropriateness of Ativan for her condition, as well as, the combination of Ativan and alcohol being unideal for her. Discharge Assessment 39-year-old woman with a history of alcohol problems who presents after becoming severely intoxicated by Ativan and alcohol making various statements that she currently does not remember. Observation on our inpatient unit reveals no current threat to herself or others and thus is discharged in good roc. Mental Status Examination General: Well dressed with good hygiene Speech: Spontaneous and fluid Thought processes: Linear and logical MSK: Smooth and coordinated gait, no signs of tremors or involuntary orofacial movements Thought content: Future orientated Abstract reasoning, and computation: Intact Description of associations: Intact Description of abnormal or psychotic thoughts: Denies any suicidal or homicidal ideation. Denies any auditory or visual hallucinations. Does not appear to be responding to internal stimuli. Does not appear to be endorsing any bizarre or paranoid ideation. Judgment: fair Insight: fair Orientation: Alert and orientated 3 Cognition: Grossly normal Recent and remote memory: Intact Attention span and concentration: Intact Fund of knowledge: Adequate Mood: "okay" Affect: Euthymic with a full range Follow Up The social work team worked during the predischarge meeting in order to evaluate for further issues of lethality address them fully before discharge. They worked on safety planning with the patient's family members in order to ensure that the patient will have a safe and effective discharge. Time Spent The amount of time spent in the coordination of care for this patient was approximately 60 minutes. Monday Vital Signs/I&Os Vital Signs Date Time Temp Pulse Resp B/P (MAP) Pulse Ox O2 Delivery O2 Flow Rate FiO2 08/26/19 06:18 97.3 105 14 114/68 (83) 08/25/19 09:00 Room Air 08/24/19 13:30 100 Medications Scheduled Bupropion HCl (Bupropion Xl) 300 Mg Tab.er.24h, 300 MG PO DAILY, (Reported) 450MG TOTAL Bupropion Hcl (Bupropion Xl) 150 Mg Tab.er.24h, 150 MG PO DAILY, (Reported) 450MG TOTAL Escitalopram Oxalate (Escitalopram Oxalate) 20 Mg Tablet, 20 MG PO DAILY, (Reported) Gabapentin (Gabapentin) 300 Mg Capsule, 300 MG PO TID, (Reported) Levothyroxine Sodium (Synthroid) 50 Mcg Tablet, 50 MCG PO DAILY, (Reported) [place] Carbonate ([place] Carbonate) 300 Mg Tablet, 600 MG PO BID, (Reported) Lurasidone Hydrochloride (Latuda) 20 Mg Tablet, 10 MG PO QHS, (Reported) Multivitamins (Thera M Plus Tablet) 1 Each Tablet, 1 TAB PO DAILY for 30 Days, #30 Omeprazole (Omeprazole) 20 Mg Cap, 20 MG PO DAILY, (Reported) Prazosin Hcl (Prazosin HCl) 1 Mg Capsule, 1 MG PO QHS, (Reported) Thiamine Hcl (Vitamin B-1) 100 Mg Tablet, 100 MG PO BID for 30 Days, #30 Topiramate (Topamax) 200 Mg Tablet, 200 MG PO BID, (Reported) Allergies Coded Allergies: clindamycin (Verified Adverse Reaction, Mild, N/V, 08/23/19) naproxen (Verified Adverse Reaction, Mild, STOMACH ACHE, 08/23/19) MEJIA GONZALES DO Aug 26, 2019 10:05
== END 2019-08-26 12:30 | disposition home or self-care (01) | DRG 775 ==
LOC: M PSY 13:28
PROVIDERS: ADMIT Psychiatry & Neurology Psychiatry; ATTEND Psychiatry & Neurology Addiction Medicine
DX: F12.20 Cannabis dependence, uncomplicated (principal); F32.5 Major depressive disorder, single episode, in full remission; F10.20 Alcohol dependence, uncomplicated; F13.20 Sedative, hypnotic or anxiolytic dependence, uncomplicated; T51.0X1A Toxic effect of ethanol, accidental (unintentional), initial encounter; T43.501A Poisoning by unspecified antipsychotics and neuroleptics, accidental (unintentional), initial encounter; Z79.899 Other long term (current) drug therapy; Z88.1 Allergy status to other antibiotic agents; Z88.8 Allergy status to other drugs, medicaments and biological substances; Z91.5 Personal history of self-harm; G93.41 Metabolic encephalopathy; F17.210 Nicotine dependence, cigarettes, uncomplicated

== ENCOUNTER 2019-10-07 20:23 | Inpatient (IN) | payer OTHER ==
[~2019-10-07] VITALS: Ht 165.1 cm; Wt 65.9 kg
[~2019-10-07 20:23] MED LIST changes: -BUPR300T34 PO; +BUPR300T92 PO; -LORA1TAB12 PO; +LORA1TAB4 PO; -OMEP-172 PO; +OMEP1CAP73 PO; +ONDA-83; -ONDA4TAB5
[2019-10-07 21:19] LABS: HEMATOCRIT 37.9 % (36.0-47.0); HEMOGLOBIN 12.1 g/dl (12.0-15.5); MEAN CORPUSCULAR HGB CONC 31.9 g/dl (32.0-36.5); PLATELET COUNT, AUTOMATED 358 10^3/uL (150-450); RED BLOOD COUNT 4.03 10^6/uL (4.00-5.40); WHITE BLOOD COUNT 15.1 10^3/uL (4.0-10.0)
[2019-10-07 21:55] LABS: HCG, SERUM QUALITATIVE NEGATIVE (NEGATIVE)
[2019-10-07 22:02] LABS: ACETAMINOPHEN LEVEL < 2.0 UG/ML (10.0-30.0); ALBUMIN 4.2 GM/DL (3.2-5.2); ALT/SGPT 11 U/L (12-78); BILIRUBIN,DIRECT 0.1 MG/DL (0.0-0.2); BILIRUBIN,TOTAL 0.4 MG/DL (0.2-1.0); BLOOD UREA NITROGEN 15 MG/DL (7-18); CALCIUM LEVEL 8.8 MG/DL (8.5-10.1); CARBON DIOXIDE LEVEL 25 MEQ/L (21-32); CHLORIDE LEVEL 109 MEQ/L (98-107); CREATININE FOR GFR 0.85 MG/DL (0.55-1.30); ETHYL ALCOHOL (ETHANOL) < 0.003 % (0.000-0.010); GLOMERULAR FILTRATION RATE > 60.0 (>60); GLUCOSE, FASTING 84 MG/DL (70-100); LITHIUM LEVEL 0.66 MEQ/L (0.60-1.20); POTASSIUM SERUM 3.4 MEQ/L (3.5-5.1); SALICYLATE LEVEL < 1.7 MG/DL (5.0-30.0); SODIUM LEVEL 139 MEQ/L (136-145); TOTAL PROTEIN 7.3 GM/DL (6.4-8.2)
[2019-10-07] MEDS ORDERED: LORA1TAB4 PO (22:12)
[2019-10-07] MEDS ORDERED: ABIL1TAB13 PO (22:12)
[2019-10-07 22:20] LABS: AMPHETAMINES LEVEL URINE NEGATIVE (NEGATIVE); BARBITURATES URINE NEGATIVE (NEGATIVE); BENZODIAZEPINES URINE NEGATIVE (NEGATIVE); CANNABINOIDS URINE POSITIVE (NEGATIVE); COCAINE METABOLITE URINE NEGATIVE (NEGATIVE); METHADONE URINE NEGATIVE (NEGATIVE); OPIATES URINE NEGATIVE (NEGATIVE); PHENCYCLIDINE URINE NEGATIVE (NEGATIVE)
[2019-10-07] MEDS ORDERED: NICOTINE 21MG/24HR 1 EA TRANSDERMAL TD ONE (23:00)
[2019-10-08] MEDS: LEVOTHYROXINE 50MCG TABLET (0.05MG) PO SCH (05:55)
[2019-10-08] MEDS ORDERED: ACETAMINOPHEN TAB 650MG DOSE (2X325MG) PO ONE (07:30)
--- NOTE | 2019-10-08 07:56 | ECGEPIP ---
[facility] - ED Test Date: 2019-10-08 Pat Name: ENIO RANDOLPH Department: Room: - Gender: Female Engagement Lead: sb : 1980 Requested By: WILBERTO CAREY Order Number: [id number] Reading MD: Farhat Alcala Measurements Intervals [place] Rate: 65 P: OR: 0 QRS: 71 QRSD: 90 T: 53 QT: 420 QTc: 438 Interpretive Statements SUPRAVENTRICULAR RHYTHM NONSPECIFIC T-WAVE ABNORMALITY Electronically Signed on 10-08-2019 7:55:51 EST by Farhat Alcala
[2019-10-08] MEDS ORDERED: GABAPENTIN 300 MG CAP PO ONE (09:00)
[2019-10-08] MEDS ORDERED: LITHIUM CARBONATE 600 MG CAP PO ONE (09:00)
[2019-10-08] MEDS ORDERED: TOPIRAMATE (TopAMAX) 100 MG TAB PO ONE (09:00)
[2019-10-08] MEDS ORDERED: OMEPRAZOLE 20 MG CAP PO ONE (09:00)
[2019-10-08] MEDS: TOPIRAMATE (TopAMAX) 100 MG TAB PO SCH ×2 (09:15→20:40)
[2019-10-08] MEDS: GABAPENTIN 300 MG CAP PO SCH ×3 (09:16→20:40)
[2019-10-08] MEDS: OMEPRAZOLE 20 MG CAP PO SCH (09:16)
[2019-10-08] MEDS: LITHIUM CARBONATE 600 MG CAP PO SCH ×2 (09:16→20:39)
[2019-10-08] MEDS: buPROPion **XL** TABLET 150MG (WELLBUTRIN XL) PO SCH (09:17)
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
[2019-10-08] MEDS ORDERED: CARIPRAZINE 1.5MG CAPSULE (VRAYLAR) PO ONE (12:45)
[2019-10-08] MEDS ORDERED: GABAPENTIN 300 MG CAP PO SCH (16:00)
[2019-10-08] MEDS: OLANZapine ORAL DISINTEGRATING TAB 5MG PO PRN (19:27)
[2019-10-08 20:42] VITALS: BP 108/68
[2019-10-08] MEDS: PRAZOSIN 1 MG CAP PO SCH (20:42)
[2019-10-08] MEDS ORDERED: ARIPiprazole 2 MG TAB PO ONE (21:00)
[2019-10-08] MEDS ORDERED: QUEtiapine FUMARATE 25 MG TAB PO ONE (21:00)
[2019-10-08] MEDS ORDERED: ARIPiprazole 2 MG TAB PO SCH (21:00)
[2019-10-09] MEDS: LEVOTHYROXINE 50MCG TABLET (0.05MG) PO SCH (05:50)
[2019-10-09 06:07] VITALS: BP 90/46
[2019-10-09] MEDS: NICOTINE 21MG/24HR 1 EA TRANSDERMAL TD SCH (09:40)
[2019-10-09] MEDS: buPROPion **XL** TABLET 150MG (WELLBUTRIN XL) PO SCH (09:41)
[2019-10-09] MEDS: GABAPENTIN 300 MG CAP PO SCH ×3 (09:42→20:54)
[2019-10-09] MEDS: OMEPRAZOLE 20 MG CAP PO SCH (09:42)
[2019-10-09] MEDS: CARIPRAZINE 1.5MG CAPSULE (VRAYLAR) PO SCH (09:42)
[2019-10-09] MEDS: LITHIUM CARBONATE 600 MG CAP PO SCH ×2 (09:42→20:54)
[2019-10-09] MEDS: TOPIRAMATE (TopAMAX) 100 MG TAB PO SCH ×2 (09:44→20:55)
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
[2019-10-09] MEDS: OLANZapine ORAL DISINTEGRATING TAB 5MG PO PRN (13:09)
[2019-10-09 16:00] VITALS: BP 99/56
[2019-10-09] MEDS ORDERED: QUEtiapine FUMARATE 25 MG TAB PO SCH (21:00)
[2019-10-09] MEDS: PRAZOSIN 1 MG CAP PO SCH (21:00)
[2019-10-10] MEDS: LEVOTHYROXINE 50MCG TABLET (0.05MG) PO SCH (06:03)
[2019-10-10 06:26] VITALS: BP 100/58
[2019-10-10] MEDS: CARIPRAZINE 1.5MG CAPSULE (VRAYLAR) PO SCH (08:12)
[2019-10-10] MEDS: GABAPENTIN 300 MG CAP PO SCH (08:12)
[2019-10-10] MEDS: TOPIRAMATE (TopAMAX) 100 MG TAB PO SCH (08:12)
[2019-10-10] MEDS: LITHIUM CARBONATE 600 MG CAP PO SCH (08:12)
[2019-10-10] MEDS: NICOTINE 21MG/24HR 1 EA TRANSDERMAL TD SCH (08:12)
[2019-10-10] MEDS: buPROPion **XL** TABLET 150MG (WELLBUTRIN XL) PO SCH (08:12)
[2019-10-10] MEDS: OMEPRAZOLE 20 MG CAP PO SCH (08:13)
--- NOTE | 2019-10-10 09:01 | HPEPDOC ---
[facility] Medical History & Physical Date of Admission Oct 10, 2019 Date of Service: Oct 10, 2019 History and Physical CHIEF COMPLAINT: Depression HISTORY OF PRESENT ILLNESS: 39-year-old female with past medical history anxiety, PTSD, depression and hypothyroidism is admitted to inpatient mental health unit for worsening depression. Patient reports having worsening depression and significant mood changes including anger, anxiety and sadness for which she came to the hospital. She feels much better after coming here, has no complaints at this time. She reports that she is at baseline health, denies any shortness of breath, chest pain, nausea, vomiting, abdominal pain, diarrhea. 10 point review of system is negative except for above PAST MEDICAL HISTORY: 1. Anxiety. 2. Depression. 3. PTSD. 4. Hypothyroidism PAST SURGICAL HISTORY: 1. None. SOCIAL HISTORY: 1 pack per day for the past 23 years Social use. Smokes marijuana FAMILY HISTORY: Negative for cancer or heart disease ALLERGIES: Please see below. HOME MEDICATIONS: Please see below. PHYSICAL EXAMINATION: VITAL SIGNS: Please see below. GENERAL: No distress HEENT: Normocephalic, atraumatic, moist mucous membranes NECK: Supple CARDIOVASCULAR EXAMINATION: S1, S2, no murmurs RESPIRATORY EXAMINATION: Clear to auscultation, no wheezing ABDOMINAL EXAMINATION: Soft, nontender, nondistended, positive bowel sounds EXTREMITIES: Range of motion intact SKIN: No rash NEUROLOGICAL EXAMINATION: Alert and oriented 3, no focal deficits PSYCHIATRIC EXAMINATION: Calm and cooperative LABORATORY DATA: See below. MICROBIOLOGY: Please see below. ASSESSMENT: 39-year-old female with past medical history of anxiety, depression, PTSD, and hypothyroidism was admitted to inpatient mental health unit for worsening depression. PLAN: 1. Depression/mood swings. Management as per primary team 2. Hypothyroidism. Continue levothyroxine Patient does not have any active medical issues at this time, please reconsult if needed. Vital Signs Vital Signs Date Time Temp Pulse Resp B/P (MAP) Pulse Ox O2 Delivery O2 Flow Rate FiO2 10/10/19 06:26 98.3 63 16 100/58 (72) 10/08/19 16:09 100 Room Air Home Medications Scheduled Aripiprazole (Abilify) 2 Mg Tablet, 2 MG PO QHS Bupropion HCl (Bupropion Xl) 300 Mg Tab.er.24h, 300 MG PO DAILY 450MG TOTAL Bupropion Hcl (Bupropion Xl) 150 Mg Tab.er.24h, 150 MG PO DAILY 450MG TOTAL Gabapentin (Gabapentin) 300 Mg Capsule, 300 MG PO TID Levothyroxine Sodium (Synthroid) 50 Mcg Tablet, 50 MCG PO DAILY [place] Carbonate ([place] Carbonate) 300 Mg Tablet, 600 MG PO BID Omeprazole (Omeprazole) 20 Mg Cap, 20 MG PO DAILY Prazosin Hcl (Prazosin HCl) 1 Mg Capsule, 1 MG PO QHS Topiramate (Topamax) 200 Mg Tablet, 200 MG PO BID Scheduled PRN Lorazepam (Lorazepam) 1 Mg Tablet, 1 MG PO DAILY PRN for ANXIETY Allergies Coded Allergies: clindamycin (Verified Adverse Reaction, Mild, N/V, 08/23/19) naproxen (Verified Adverse Reaction, Mild, STOMACH ACHE, 08/23/19) A-FIB/CHADSVASC A-FIB History Current/History of A-Fib/PAF?: No DONNA ROGERS MD Oct 10, 2019 09:01
[2019-10-10] MEDS ORDERED: QUET1TAB7 PO (10:30)
[2019-10-10] MEDS ORDERED: VRAY1.5C PO ×2 (10:30→10:31)
[2019-10-10] MEDS ORDERED: NICO21PAT TD (10:30)
--- NOTE | 2019-10-10 10:43 | MHDSPDOC ---
[facility] Discharge Summary Discharge Summary DATE OF ADMISSION: Oct 08, 2019 at 15:46 DATE OF DISCHARGE: 10/10/19 Discharge Yuliana Berger Female Date of : N/A Date of Service: 10/10/2019 Diagnoses Bipolar disorder type 1, most recent episode mixed, in remission. Alcohol use disorder, mod Benzo use disorder Cannabis use disorder. PTSD, chronic. Borderline personality disorder. History of Present Illness The patient is a 39-year-old woman with a history of PTSD and borderline personality disorder presents after having significant mood variation, agitation, sleeplessness and increased energy and anger Episode. She presents with significant lability and reports she hasn't been able to sleep for several days. The patient is admitted out of an abundance of caution and started on Compazine and Seroquel shortly after she is admitted. When the patient is met with, she reports that she is feeling much better and that she realized how intense her symptoms where as she felt that she was energized, cleaning and staying up all night, but was fairly dysphoric and angry. She is appreciative and thankful for the medications feeling that she got into an 8 hours of sleep last night and reports that she feels much improved. She reports that she is never had such an episode before and that she was advised by the intensity of the symptoms. Consultants Involved Hospitalist/PCP screening Treatment and Progress On The Unit The patient admitted to the inpatient mental health unit after being seen in the ER and started on Vraylar 1.5 mg daily, discontinued on her Abilify, continued on lithium and her Wellbutrin. The patient was noted to have characteristics of a mild mixed episode and subsequently being started on Seroquel by the on-call on the night that she had arrived 75 mg. The patient did very well, slept well. Her mood symptoms resolved spontaneously and she became quite stable. I attempted to convert her to a voluntary on her first day of me seeing her, however, it was revealed me the next day the patient did not want further on a voluntary admission and now she was approaching a 48 hour time in which her 9.39 would need to either be extended or she will be discharged. The patient was discharged at her best as she did not sign a voluntary extension and did not meet involuntary criteria as she had done well. Returned to her baseline mental status, had denied suicidal or homicidal ideation through her admission and was non-psychotic, thus she was discharged in good roc with supplies of her medications. Discharge Assessment 39-year-old woman with a history of PTSD and depression and borderline pe rsonality disorder who appears to demonstrate symptoms in mixed episode. She does have a history of substance abuse; but it doesn't appear salient at this time. Mental Status Examination General: Well dressed with good hygiene Speech: Spontaneous and fluid Thought processes: Linear and logical MSK: Smooth and coordinated gait, no signs of tremors or involuntary orofacial movements Thought content: Future orientated Abstract reasoning, and computation: Intact Description of associations: Intact Description of abnormal or psychotic thoughts: Denies any suicidal or homicidal ideation. Denies any auditory or visual hallucinations. Does not appear to be responding to internal stimuli. Does not appear to be endorsing any bizarre or paranoid ideation. Judgment: fair Insight: fair Orientation: Alert and orientated 3 Cognition: Grossly normal Recent and remote memory: Intact Attention span and concentration: Intact Fund of knowledge: Adequate Mood: "okay" Affect: Euthymic with a full range Follow Up The social work team worked during the predischarge meeting in order to evaluate for further issues of lethality address them fully before discharge. They worked on safety planning with the patient's family members in order to ensure that the patient will have a safe and effective discharge. Time Spent The amount of time spent in the coordination of care for this patient was a pproximately 40 minutes. Vital Signs/I&Os Vital Signs Date Time Temp Pulse Resp B/P (MAP) Pulse Ox O2 Delivery O2 Flow Rate FiO2 10/10/19 06:26 98.3 63 16 100/58 (72) 10/08/19 16:09 100 Room Air Medications Scheduled Bupropion HCl (Bupropion Xl) 300 Mg Tab.er.24h, 300 MG PO DAILY, (Reported) 450MG TOTAL Bupropion Hcl (Bupropion Xl) 150 Mg Tab.er.24h, 150 MG PO DAILY, (Reported) 450MG TOTAL Cariprazine HCl (Vraylar) 1.5 Mg Capsule, 1.5 MG PO DAILY for mood for 7 Days, #7 Gabapentin (Gabapentin) 300 Mg Capsule, 300 MG PO TID, (Reported) Levothyroxine Sodium (Synthroid) 50 Mcg Tablet, 50 MCG PO DAILY, (Reported) [place] Carbonate (Buena Carbonate) 300 Mg Tablet, 600 MG PO BID, (Reported) Nicotine (Nicotine Patch) 21 Mg Patch.td24, 1 PATCH TD DAILY for tobacco for 30 Days, #30 Olanzapine (Zyprexa) 5 Mg Tablet, 1 TAB PO dailypr for thought for 7 Days, #7 Omeprazole (Omeprazole) 20 Mg Cap, 20 MG PO DAILY, (Reported) Prazosin Hcl (Prazosin HCl) 1 Mg Capsule, 1 MG PO QHS, (Reported) Quetiapine Fumarate (Quetiapine Fumarate) 25 Mg Tablet, 75 MG PO QHS for mood for 7 Days, #21 Topiramate (Topamax) 200 Mg Tablet, 200 MG PO BID, (Reported) Scheduled PRN Lorazepam (Lorazepam) 1 Mg Tablet, 1 MG PO DAILY PRN for ANXIETY, (Reported) Allergies Coded Allergies: clindamycin (Verified Adverse Reaction, Mild, N/V, 08/23/19) naproxen (Verified Adverse Reaction, Mild, STOMACH ACHE, 08/23/19) MEJIA GONZALES DO Oct 10, 2019 10:43
[2019-10-10] MEDS ORDERED: ZYPR5TAB2 PO (16:54)
== END 2019-10-10 12:35 | disposition home or self-care (01) | DRG 753 ==
LOC: M ED 20:23 → M ED INP 10-08 15:46 → M PSY 10-08 16:34
PROVIDERS: ADMIT Psychiatry & Neurology Addiction Medicine; ATTEND Psychiatry & Neurology Addiction Medicine
DX: F31.60 Bipolar disorder, current episode mixed, unspecified (principal); F10.20 Alcohol dependence, uncomplicated; F13.90 Sedative, hypnotic, or anxiolytic use, unspecified, uncomplicated; F12.20 Cannabis dependence, uncomplicated; F43.12 Post-traumatic stress disorder, chronic; F60.3 Borderline personality disorder; Z81.8 Family history of other mental and behavioral disorders; Z62.810 Personal history of physical and sexual abuse in childhood; Z56.0 Unemployment, unspecified; Z85.42 Personal history of malignant neoplasm of other parts of uterus; G43.909 Migraine, unspecified, not intractable, without status migrainosus; Z79.899 Other long term (current) drug therapy; Z88.1 Allergy status to other antibiotic agents; F41.9 Anxiety disorder, unspecified; E03.9 Hypothyroidism, unspecified; F17.210 Nicotine dependence, cigarettes, uncomplicated

== ENCOUNTER → 2019-11-14 | Outpatient (CLI) | payer OTHER ==
[~2019-11-14] MED LIST changes: +ABIL1TAB13 PO; -FLUO20CA19 PO; +FLUO20CA22 PO; +QUET100T2 PO; +QUET1TAB7 PO; -QUET1TAB8 PO; +VRAY1.5C PO; +ZYPR5TAB2 PO
[2019-11-14 13:16] LABS: BASO # 0.1 10^3/uL (0.0-0.2); BASO % 0.6 % (0.0-1.0); EOS # 0.4 10^3/uL (0.0-0.5); EOS % 4.1 % (0.0-3.0); HEMATOCRIT 36.8 % (36.0-47.0); HEMOGLOBIN 11.4 g/dl (12.0-15.5); LYMPH # 2.3 10^3/uL (1.5-5.0); LYMPH % 23.6 % (24.0-44.0); MEAN CORPUSCULAR HEMOGLOBIN 30.2 pg (27.0-33.0); MEAN CORPUSCULAR VOLUME 97.6 fl (80.0-96.0); MONO # 0.8 10^3/uL (0.0-0.8); NEUTROPHILS # 6.2 10^3/uL (1.5-8.5); NEUTROPHILS % 63.3 % (36.0-66.0); PLATELET COUNT, AUTOMATED 357 10^3/uL (150-450); RED BLOOD COUNT 3.77 10^6/uL (4.00-5.40); WHITE BLOOD COUNT 9.7 10^3/uL (4.0-10.0)
[2019-11-14 14:10] LABS: ALBUMIN 3.5 GM/DL (3.2-5.2); ALT/SGPT 20 U/L (12-78); BILIRUBIN,TOTAL 0.4 MG/DL (0.2-1.0); BLOOD UREA NITROGEN 10 MG/DL (7-18); CARBON DIOXIDE LEVEL 27 MEQ/L (21-32); CHLORIDE LEVEL 111 MEQ/L (98-107); FREE T4 0.86 NG/DL (0.76-1.46); GLOMERULAR FILTRATION RATE > 60.0 (>60); GLUCOSE, FASTING 85 MG/DL (70-100); POTASSIUM SERUM 4.3 MEQ/L (3.5-5.1); SODIUM LEVEL 141 MEQ/L (136-145); TOTAL PROTEIN 6.6 GM/DL (6.4-8.2)
== END ==
LOC: M WUC 10:37
PROVIDERS: ATTEND Physician Assistant
DX: D72.829 Elevated white blood cell count, unspecified (principal); E03.9 Hypothyroidism, unspecified

== ENCOUNTER → 2020-03-05 | Outpatient (REF) | payer OTHER | LOC: M SFHCPLAZ 15:48 | PROVIDERS: ATTEND Physician Assistant | DX: R53.83 Other fatigue (principal); Z53.9 Procedure and treatment not carried out, unspecified reason ==

== ENCOUNTER → 2020-03-08 | Outpatient (CLI) | payer OTHER ==
[2020-03-08 16:05] LABS: HEMOGLOBIN 12.5 g/dl (12.0-15.5); MEAN CORPUSCULAR HEMOGLOBIN 29.4 pg (27.0-33.0); MEAN CORPUSCULAR HGB CONC 31.3 g/dl (32.0-36.5); MEAN CORPUSCULAR VOLUME 94.1 fl (80.0-96.0); PLATELET COUNT, AUTOMATED 326 10^3/uL (150-450); RED BLOOD COUNT 4.25 10^6/uL (4.00-5.40); WHITE BLOOD COUNT 9.9 10^3/uL (4.0-10.0)
[2020-03-08 16:18] LABS: BLOOD UREA NITROGEN 6 MG/DL (7-18); CALCIUM LEVEL 8.9 MG/DL (8.5-10.1); CARBON DIOXIDE LEVEL 24 MEQ/L (21-32); CHLORIDE LEVEL 111 MEQ/L (98-107); CREATININE FOR GFR 0.95 MG/DL (0.55-1.30); FREE T4 1.29 NG/DL (0.76-1.46); GLOMERULAR FILTRATION RATE > 60.0 (>60); GLUCOSE, FASTING 84 MG/DL (70-100); POTASSIUM SERUM 3.8 MEQ/L (3.5-5.1); SODIUM LEVEL 143 MEQ/L (136-145)
[2020-03-09 10:27] LABS: TOTAL 25(OH) VITAMIN D 27.2 NG/ML (30.0-100.0)
== END ==
LOC: M WUC 11:12
PROVIDERS: ATTEND Physician Assistant
DX: R53.83 Other fatigue (principal)

== ENCOUNTER → 2020-03-18 | Outpatient (REF) | payer OTHER ==
[2020-03-18 17:52] LABS: APPEARANCE, URINE CLEAR (CLEAR); BACTERIA, URINE AUTO NEGATIVE (NEGATIVE); BILIRUBIN, URINE AUTO NEGATIVE (NEGATIVE); BLOOD, URINE BLOOD NEGATIVE (NEGATIVE); COLOR, URINE STRAW (YELLOW); GLUCOSE, URINE (UA) AUTO NEGATIVE (NEGATIVE); KETONE, URINE AUTO NEGATIVE (NEGATIVE); LEUKOCYTE ESTERASE, URINE AUTO NEGATIVE (NEGATIVE); NITRITE, URINE AUTO NEGATIVE (NEGATIVE); PROTEIN, URINE AUTO NEGATIVE (NEGATIVE); RBC, URINE AUTO 0 /HPF (0-3); SPECIFIC GRAVITY URINE AUTO 1.005 (1.002-1.035); SQUAMOUS EPITHELIAL CELL UR AU 0 /HPF (0-6); UROBILINOGEN, URINE AUTO 0.2 mg/dL (0.0-2.0); WBC, URINE AUTO 0 /HPF (0-3)
== END ==
LOC: M SMT 17:03
PROVIDERS: ATTEND Nurse Practitioner Women's Health
DX: N39.46 Mixed incontinence (principal)

== ENCOUNTER → 2020-05-20 | Outpatient (CLI) | payer OTHER ==
--- NOTE | 2020-06-08 17:05 | REPPI ---
RIGHT HUMERUS STUDY CLINICAL: Pain. TECHNIQUE: AP and lateral views of the right humerus. FINDINGS: No acute fracture or dislocation. No healed injury. No arthritic changes. Surrounding soft tissues are normal. IMPRESSION: Normal right humerus radiographs. MTDD
== END ==
LOC: M PLAIMG 14:17
PROVIDERS: ATTEND Nurse Practitioner Family
DX: M79.621 Pain in right upper arm (principal)

== ENCOUNTER → 2020-09-16 | Outpatient (REF) | payer OTHER ==
[~2020-09-16] MED LIST changes: +NICO1DIS12 TD; -NICO21DI31 TD
== END ==
LOC: M SFHCWAGY 17:38
PROVIDERS: ATTEND Advanced Practice Midwife
DX: Z12.4 Encounter for screening for malignant neoplasm of cervix (principal)

== ENCOUNTER → 2020-11-13 | Outpatient (CLI) | payer OTHER ==
[~2020-11-13] MED LIST changes: +BUPR150T12 PO; -BUPR150T3 PO; -ESCI20TA PO; +ESCI20TA16 PO; +GABA-282 PO; -GABA-843 PO; -QUET1TAB7 PO; +QUET25TA3 PO
[2020-11-13 16:42] LABS: FREE T4 0.91 NG/DL (0.76-1.46); THYROID STIMULATING HORMONE 1.93 uIU/ML (0.358-3.740)
== END ==
LOC: M WUC 14:48
PROVIDERS: ATTEND Physician Assistant
DX: E03.9 Hypothyroidism, unspecified (principal)

== ENCOUNTER → 2021-01-22 | Outpatient (CLI) | payer OTHER ==
[~2021-01-22] MED LIST changes: +BENZ0.5T23 PO; +CLAR10CA3 PO; +GABA-283 PO; -GABA-845 PO; +LITH300C PO; +MONT10TA10 PO; +NALT50TA4 PO; +NEUR300C PO; +SUMA100T2 PO; +TIZA4CAP PO; +VRAY3CAP PO
== END ==
LOC: M LABSMTC 09:36
PROVIDERS: ATTEND Anesthesiology
DX: Z01.812 Encounter for preprocedural laboratory examination (principal); Z20.822 Contact with and (suspected) exposure to COVID-19

== ENCOUNTER 2021-01-27 06:00 | Day surgery (SDC) | payer OTHER ==
[~2021-01-27] VITALS: Ht 165.1 cm; Wt 83.5 kg
[~2021-01-27 06:00] MED LIST changes: +LR 1,000 ML IV ONE; +ceFAZolin SOD 2 GM in IV 1 EA IV ONE
[2021-01-27 06:29] LABS: HEMATOCRIT 38.7 % (36.0-47.0); HEMOGLOBIN 12.3 g/dl (12.0-15.5); MEAN CORPUSCULAR HEMOGLOBIN 29.7 pg (27.0-33.0); MEAN CORPUSCULAR HGB CONC 31.8 g/dl (32.0-36.5); MEAN CORPUSCULAR VOLUME 93.5 fl (80.0-96.0); PLATELET COUNT, AUTOMATED 370 10^3/uL (150-450); RED BLOOD COUNT 4.14 10^6/uL (4.00-5.40)
[2021-01-27] MEDS ORDERED: DESFLURANE 240 ML INHALANT As Ordered ONE (07:12)
[2021-01-27] MEDS ORDERED: LIDOCAINE 2% 100MG/5ML SDV (FOR ANES.) As Ordered ONE (07:17)
[2021-01-27] MEDS ORDERED: MIDAZOLAM INJ 2MG/2ML VIAL (J2250 PER 1MG) As Ordered ONE (07:17)
[2021-01-27] MEDS ORDERED: propofoL 200 MG/20 ML VIAL As Ordered ONE ×2 (07:17→07:43)
[2021-01-27] MEDS ORDERED: LIDOCAINE W/EPINEPHRINE 1% 20ML VIAL As Ordered ONE (07:17)
[2021-01-27] MEDS ORDERED: fentaNYL 100 MCG/2 ML INJECTION (J3010) As Ordered ONE (07:17)
[2021-01-27] MEDS ORDERED: METHYLENE BLUE 0.5% (5MG/ML) 10 ML AMP (PROVAYBLUE) As Ordered ONE (07:17)
[2021-01-27] MEDS ORDERED: dexameTHASONE 4 MG/ML 1ML VIAL (J1100 PER 1MG) As Ordered ONE (07:18)
[2021-01-27] MEDS ORDERED: ONDANSETRON 4MG/2ML VIAL As Ordered ONE (07:18)
[2021-01-27] MEDS ORDERED: KETOROLAC 60MG 2ML VIAL As Ordered ONE (08:06)
[2021-01-27] MEDS ORDERED: METOCLOPRAMIDE INJ 10MG/2ML VIAL (J2765 PER 1) As Ordered ONE (08:07)
[2021-01-27] MEDS ORDERED: ACETAMINOPHEN 1000MG 100ML IV BTL (OFIRMEV) (J0131 PER 10MG) As Ordered ONE (08:10)
[2021-01-27] MEDS ORDERED: OXYC1TAB23 PO (08:31)
--- NOTE | 2021-01-27 08:35 | ROOPDOC ---
[facility] Report Of Operation Report of Operation DATE OF PROCEDURE: 01/27/21 PREOPERATIVE DIAGNOSES: 1. Genuine stress urinary incontinence POSTOPERATIVE DIAGNOSES: 1. Genuine stress urinary incontinence PROCEDURE PERFORMED: 1. Tension-free transvaginal tape obturator approach 2. Cystoscopy. SURGEON: Arely Grady MD REINFORCING STEEL WORKER: Giacomo Stoner MD ANESTHESIA: General endotracheal anesthesia. ESTIMATED BLOOD LOSS: 150 mL. INTRAVENOUS FLUID: 1000 mL of Lactated Ringer's solution. URINE OUTPUT: 25 mL. PREOPERATIVE ANTIBIOTICS: 2 grams of Ancef. DESCRIPTION OF OPERATION: The bladder was emptied. Appropriate areas in the groin and midline were marked and injected with 0.25% Marcaine. Allis clamps were used to grasp the vaginal mucosa approximately 1 cm distal to the urethral meatus a second clamp was placed 1 cm distal to the first. A vertical incision was made with a scalpel. Using Metzenbaum scissors, this was further dissected sharply in periurethral space bilaterally. Wing guide opening. TVTO device was then guided along the wing guide and passed out to the obturator foramen and exited through the previously marked area in the groin. The trocar was then removed. In similar fashion was performed on the opposite side. The TVT was then adjusted over a Collette clamp. Sleeves were then removed. Excessive mesh was trimmed. The vaginal tissue was then irrigated and was closed with #2-0 Vicryl in a running fashion. Cystoscopy was then placed transurethrally inspecting the bladder showing normal bladder mucosa with bilateral urinary jets. Areas in the groin where dressed with Dermabond. The patient was then taken to recovery in stable condition was awakened from general anesthesia and taken to recovery in stable condition. Counts were correct. Dr. Stoner, my prosthetics assistant, played an essential role during surgery. He assisted with all aspects of the surgery. ARELY GRADY MD. January 27, 2021 08:35
[2021-01-27] MEDS ORDERED: LR 1,000 ML IV SCH (08:50)
[2021-01-27] MEDS ORDERED: oxyCODONE 5MG TAB PO PRN (08:50)
[2021-01-27] MEDS ORDERED: ONDANSETRON 4MG/2ML VIAL IV PRN (08:50)
[2021-01-27] MEDS ORDERED: fentaNYL 100 MCG/2 ML INJECTION (J3010) IV PRN (08:50)
[2021-01-27] MEDS ORDERED: HYDROMORPHONE HCL 0.5 MG/ 0.5 ML SYRINGE (J1170 PER 1) IV PRN (08:50)
[2021-01-27] MEDS ORDERED: PERCOCET 5MG/325MG TAB PO PRN (09:00)
[2021-01-27 10:35] VITALS: BP 106/54
[2021-01-27] MEDS ORDERED: KETOROLAC 30 MG/ML 1ML VIAL IV SCH (14:30)
== END 2021-01-27 10:44 | disposition home or self-care (01) ==
LOC: M SDC 06:00
PROVIDERS: ATTEND Obstetrics & Gynecology
DX: N39.3 Stress incontinence (female) (male) (principal); K21.9 Gastro-esophageal reflux disease without esophagitis; I34.1 Nonrheumatic mitral (valve) prolapse; F41.9 Anxiety disorder, unspecified; F17.218 Nicotine dependence, cigarettes, with other nicotine-induced disorders; Z79.899 Other long term (current) drug therapy
CPT/HCPCS: 36415; 57288; 81025; 85027; 86850; 86900; 86901; C1771; J0131; J0690; J1100; J1885; J2250; J2405; J2765; J3010; Q9968

== ENCOUNTER → 2021-03-12 | Outpatient (REF) | payer OTHER ==
[~2021-03-12] MED LIST changes: -LR 1,000 ML IV ONE; +OXYC1TAB23 PO; -ceFAZolin SOD 2 GM in IV 1 EA IV ONE
[2021-03-12 18:03] LABS: APPEARANCE, URINE HAZY (CLEAR); BACTERIA, URINE AUTO 1+ (NEGATIVE); BILIRUBIN, URINE AUTO NEGATIVE (NEGATIVE); BLOOD, URINE BLOOD 1+ (NEGATIVE); COLOR, URINE YELLOW (YELLOW); GLUCOSE, URINE (UA) AUTO NEGATIVE (NEGATIVE); KETONE, URINE AUTO NEGATIVE (NEGATIVE); LEUKOCYTE ESTERASE, URINE AUTO 2+ (NEGATIVE); MUCUS, URINE SMALL (NEGATIVE); NITRITE, URINE AUTO NEGATIVE (NEGATIVE); PROTEIN, URINE AUTO NEGATIVE (NEGATIVE); RBC, URINE AUTO 4 /HPF (0-3); SPECIFIC GRAVITY URINE AUTO 1.002 (1.002-1.035); SQUAMOUS EPITHELIAL CELL UR AU 1 /HPF (0-6); UROBILINOGEN, URINE AUTO 0.2 mg/dL (0.0-2.0); WBC, URINE AUTO 125 /HPF (0-3)
== END ==
LOC: M SFHCPLAZ 16:43
PROVIDERS: ATTEND Physician Assistant
DX: R30.0 Dysuria (principal)

== ENCOUNTER → 2021-04-07 | Outpatient (CLI) | payer OTHER ==
[2021-04-07 15:46] LABS: BASO # 0.1 10^3/uL (0.0-0.2); BASO % 0.5 % (0.0-1.0); EOS # 0.4 10^3/uL (0.0-0.5); EOS % 3.5 % (0.0-3.0); HEMATOCRIT 37.7 % (36.0-47.0); HEMOGLOBIN 11.8 g/dl (12.0-15.5); LYMPH # 2.9 10^3/uL (1.5-5.0); LYMPH % 23.2 % (24.0-44.0); MEAN CORPUSCULAR HEMOGLOBIN 29.3 pg (27.0-33.0); MEAN CORPUSCULAR HGB CONC 31.3 g/dl (32.0-36.5); MEAN CORPUSCULAR VOLUME 93.5 fl (80.0-96.0); MONO # 0.9 10^3/uL (0.0-0.8); MONO % 7.1 % (2.0-8.0); NEUTROPHILS # 8.1 10^3/uL (1.5-8.5); NEUTROPHILS % 65.4 % (36.0-66.0); PLATELET COUNT, AUTOMATED 407 10^3/uL (150-450); RED BLOOD COUNT 4.03 10^6/uL (4.00-5.40); WHITE BLOOD COUNT 12.3 10^3/uL (4.0-10.0)
[2021-04-07 16:24] LABS: ALBUMIN 3.6 GM/DL (3.2-5.2); ALT/SGPT 14 U/L (12-78); BILIRUBIN,TOTAL 0.2 MG/DL (0.2-1.0); BLOOD UREA NITROGEN 6 MG/DL (7-18); CALCIUM LEVEL 9.3 MG/DL (8.5-10.1); CARBON DIOXIDE LEVEL 23 MEQ/L (21-32); CHLORIDE LEVEL 111 MEQ/L (98-107); CHOLESTEROL LEVEL 185 MG/DL (<200); CHOLESTEROL RISK RATIO 2.983 (<5); CREATININE FOR GFR 0.82 MG/DL (0.55-1.30); GLOMERULAR FILTRATION RATE > 60.0 (>58); GLUCOSE, FASTING 89 MG/DL (70-100); HDL CHOLESTEROL 62 MG/DL (>40); LDL CHOLESTEROL 109 MG/DL (<100); LITHIUM LEVEL 0.63 MEQ/L (0.60-1.20); NON-HDL-C 123 MG/DL; POTASSIUM SERUM 3.7 MEQ/L (3.5-5.1); SODIUM LEVEL 140 MEQ/L (136-145); TOTAL PROTEIN 6.8 GM/DL (6.4-8.2); TRIGLYCERIDES LEVEL 68 MG/DL (<150)
== END ==
LOC: M WUC 13:58
PROVIDERS: ATTEND Nurse Practitioner Psychiatric/Mental Health
DX: F31.32 Bipolar disorder, current episode depressed, moderate (principal)

== ENCOUNTER → 2021-05-30 | Outpatient (CLI) | payer OTHER ==
[~2021-05-30] MED LIST changes: +QUET1TAB17 PO; -QUET25TA3 PO
--- NOTE | 2021-05-31 09:07 | REP ---
INDICATION: ACUTE PAIN OF RT SHOULDER. COMPARISON: None. TECHNIQUE: 3T multiplanar MRI imaging of the was obtained using various sequences. FINDINGS: The cortical marrow signal seen throughout the humerus is within normal limits. The right upper extremity soft tissues are normal. There is no evidence of a mass or mass effect. There is no abnormal intracompartmental or extra compartmental fluid. All imaged flexor and extensor tendons are intact and of normal appearing low signal throughout. All adipose tissue suppresses normal using fat suppression techniques. There is no evidence of a shoulder or elbow joint effusion. IMPRESSION: MRI findings are within normal limits. <Electronically signed by Lazaro Ramon > 05/31/21 [id number]
--- NOTE | 2021-05-31 09:16 | REP ---
INDICATION: ACUTE PAIN OF RT SHOULDER. COMPARISON: None. TECHNIQUE: Coronal oblique T1 and fat suppressed T2. Sagittal oblique fat suppressed T2. Axial [id number] and T2 FLASH. FINDINGS: There is mild hypertrophic degenerative change seen involving the acromioclavicular joint. The acromion process is type 1. There is patchy and linear T2 hyper signal seen throughout the supraspinatus tendon some of this appears to be near full-thickness along the anterior leading edge. There is no evidence of musculotendinous retraction or significant muscular atrophy. Normal appearing low signal is seen throughout the subscapularis, infraspinatus, and teres minor tendons. The biceps tendon resides within the bicipital groove. There is no evidence of a glenohumeral joint effusion or abnormal fluid in the subcoracoid recess. There is no abnormal coracohumeral or coracoacromial ligamentous thickening. The marrow signal is within normal limits. IMPRESSION: There is advanced supraspinatus tendinitis/tendinosis. Partial full-thickness tear cannot be ruled out particularly along the anterior leading edge. Other findings as described above. <Electronically signed by Lazaro Ramon > 05/31/21 [id number]
== END ==
LOC: M RAD 12:27
PROVIDERS: ATTEND Physician Assistant
DX: M25.511 Pain in right shoulder (principal); M75.91 Shoulder lesion, unspecified, right shoulder

== ENCOUNTER → 2022-06-08 | Outpatient (CLI) | payer OTHER ==
[~2022-06-08] MED LIST changes: +FLUO-96 PO; -FLUO20CA20 PO; -MONT10TA10 PO; +MONT10TA97 PO; -TOPI25CA3 PO; +TOPI25CA5 PO
[2022-06-08 16:49] LABS: BASO # 0.1 10^3/uL (0.0-0.2); BASO % 0.5 % (0.0-1.0); EOS # 0.4 10^3/uL (0.0-0.5); EOS % 2.6 % (0.0-3.0); HEMATOCRIT 38.8 % (36.0-47.0); HEMOGLOBIN 11.8 g/dl (12.0-15.5); LYMPH # 3.3 10^3/uL (1.5-5.0); LYMPH % 20.2 % (24.0-44.0); MEAN CORPUSCULAR HEMOGLOBIN 29.1 pg (27.0-33.0); MEAN CORPUSCULAR HGB CONC 30.4 g/dl (32.0-36.5); MEAN CORPUSCULAR VOLUME 95.6 fl (80.0-96.0); NEUTROPHILS # 11.5 10^3/uL (1.5-8.5); NEUTROPHILS % 70.1 % (36.0-66.0); PLATELET COUNT, AUTOMATED 449 10^3/uL (150-450); RED BLOOD COUNT 4.06 10^6/uL (4.00-5.40); WHITE BLOOD COUNT 16.4 10^3/uL (4.0-10.0)
[2022-06-08 17:42] LABS: ALBUMIN 3.4 GM/DL (3.2-5.2); ALT/SGPT 16 U/L (12-78); BILIRUBIN,TOTAL < 0.1 MG/DL (0.2-1.0); BLOOD UREA NITROGEN 8 MG/DL (7-18); CALCIUM LEVEL 9.5 MG/DL (8.5-10.1); CARBON DIOXIDE LEVEL 26 MEQ/L (21-32); CHLORIDE LEVEL 110 MEQ/L (98-107); CREATININE FOR GFR 0.78 MG/DL (0.55-1.30); GLOMERULAR FILTRATION RATE > 60.0 (>58); GLUCOSE, FASTING 83 MG/DL (70-100); POTASSIUM SERUM 4.1 MEQ/L (3.5-5.1); RHEUMATOID FACTOR QUANT < 10.0 IU/ML (<15.0); SODIUM LEVEL 139 MEQ/L (136-145)
[2022-06-08 18:37] LABS: VITAMIN B12 LEVEL 290 PG/ML (247-911)
[2022-06-08 19:25] LABS: ERYTHROCYTE SEDIMENTATION RATE 13 mm/hr (0-20)
[2022-06-08 20:01] LABS: TOTAL 25(OH) VITAMIN D 18.7 NG/ML (30.0-100.0)
== END ==
LOC: M LAB 15:02
PROVIDERS: ATTEND Psychiatry & Neurology Neurology
DX: R51.9 Headache, unspecified (principal)

== ENCOUNTER → 2023-01-04 | Outpatient (REF) | payer OTHER | LOC: M LAB REF 16:24 | PROVIDERS: ATTEND Nurse Practitioner Family | DX: R30.0 Dysuria (principal) ==